=== PATIENT | male | born 1980 | race Caucasian/White ===

== ENCOUNTER 2024-12-18 00:07 | Outpatient (REF) | payer SELFPAY ==
[2024-12-18 00:08] VITALS: BP 193/94; PULSE 103; RESP 19; TEMP 36.7; O2SAT 99; BMI 32.1
--- NOTE | 2024-12-18 00:38 | EKG12_ITS ---
Test Reason : DYSRHYTHMIA Blood Pressure : */* mmHG Vent. Rate : 87 BPM Atrial Rate : 87 BPM P-R Int : 134 ms QRS Dur : 90 ms QT Int : 388 ms P-R-T Axes : 32 9 28 degrees QTcB Int : 466 ms Normal sinus rhythm Normal ECG Confirmed by Danielito Lopez ([id number]), school photograph editor TARAS PATTERSON ([id number]) on 12/18/2024 12:49:46 PM Referred By: Confirmed By: Danielito Lopez
[2024-12-18 00:55] LABS: Absolute Lymphocyte Count 1.35 X10^3/uL (0.83-4.51); Basophil# 0.05 X10^3/uL; Basophil% 0.7 % (0-1); Eosinophil# 0.11 X10^3/uL; Eosinophils% 1.6 % (0-5); Hematocrit 35.6 % (40-54); Lymphocyte # 1.35 X10^3/ul (0.83-4.51); Lymphocyte % 19.2 % (19-41); Mean Corp Hgb Conc 36.5 g/dL (32-36); Mean Corpuscular Hgb 33.5 pg (27.0-32.0); Mean Corpuscular Volume 91.8 fL (80-94); Mean Platelet Vol. 11.5 fl (6.2-12.0); Monocyte# 0.53 X10^3/uL; Monocyte% 7.5 % (0-10); NRBC Flagged by Analyzer 0 % (0-5); Neutrophil # 4.97 X10^3/uL (2.7-7.7); Neutrophil % 70.7 % (47-70); POSITIVE COUNT YES; Platelet Count 98 K/mm3 (150-450); RBC Distribution Width SD 43.3 fl (35.1-43.9); Red Blood Count 3.88 M/mm3 (4.6-6.2)
[2024-12-18 00:58] LABS: Differential Indicated SCAN CRITERIA MET
[2024-12-18 00:59] LABS: Mucous, Urine 0 SEEN /hpf (<or=2+)
[2024-12-18 01:01] LABS: Color, Urine Yellow (Yellow); Glucose, Dipstick Normal (Normal); Ketone-Dipstick Negative (Negative); Leukocyte Esterase-Dipstick 25 /ul (Negative); Nitrite-Dipstick Negative (Negative); Occult Blood-Urine 250 /ul (Negative); Urine Clarity Clear (Clear); Urine Urobilinogen 8 mg/dl (Normal)
[2024-12-18 01:08] VITALS: BP 161/83; PULSE 86; RESP 14; O2SAT 97
[2024-12-18 01:08] LABS: Urine Bilirubin Dipstick 3 mg/dL (Negative)
[2024-12-18 01:14] LABS: White Blood Cells 10-25 SEEN /hpf (0-5)
[2024-12-18 01:15] LABS: Bacteria 1+ /hpf (None Seen); Hyaline Cast 0-5 SEEN /lpf (0-5); Red Blood Cells-Urine 25-50 SEEN /hpf (0-5); Squamous Epithelial Cells - UA 0-5 SEEN /hpf (0-5)
[2024-12-18 01:23] LABS: Alcohol, Blood (Medical)-Serum < 10.1 mg/dL (<=10.0)
[2024-12-18 01:38] LABS: ALB/GLOB Ratio 0.8 RATIO (0.9-2.4); AST(SGOT) 69 U/L (<=37); Alanine Aminotransfer ALT/SGPT 23 U/L (<=46); Albumin, Serum 3.3 g/dL (3.5-5.0); Alkaline Phosphatase 141 U/L (40-129); Anion Gap 14 (5-15); BUN 20 mg/dL (4-19); BUN/Creat Ratio 22.9 RATIO (10-20); Chloride 100 mmol/L (98-108); Creatinine, Serum 0.88 mg/dL (0.70-1.20); EST Glomerular Filtration Rate 110 (>60); Globulin 4.4 g/dL (2.2-4.2); Glucose 118 mg/dL (70-99); Potassium 3.3 mmol/L (3.3-5.1); Protein, Total 7.7 g/dL (5.9-8.4); Sodium Level 136 mmol/L (133-145); Total Bilirubin 3.87 mg/dL (0.00-1.30)
[2024-12-18 01:39] LABS: Amphetamine Urine NEGATIVE (<1000 ng/mL); Barbiturate Urine NEGATIVE (< 200 ng/mL); Benzodiazepine Urine NEGATIVE (< 200 ng/mL); Buprenorphine Urine NEGATIVE (< 200 ng/mL); Cocaine Urine NEGATIVE (< 300 ng/mL); Fentanyl, Urine NEGATIVE; Methadone Urine NEGATIVE (< 300 ng/mL); Opiates Urine NEGATIVE (< 300 ng/mL); Oxycodone, Urine NEGATIVE (< 100 ng/mL); PCP Urine NEGATIVE (< 25 ng/mL); Protein, Urine (Random) > 600.0 mg/dL (0.0-12.0); THC Urine NEGATIVE (< 50 ng/mL)
[2024-12-18 01:50] LABS: Platelet Estimate SLT DEC (ADEQ)
[2024-12-18 02:00] VITALS: BP 164/94; PULSE 89; RESP 17; O2SAT 97
--- NOTE | 2024-12-18 02:25 | EX.ED.DYSGE1 ---
HPI History of Present Illness Chief Complaint: Alt LOC Informant: patient Narrative Narrative: Patient is a 43-year-old male with history of alcohol abuse and chronic swelling of his lower extremities presenting from half-way for concern of altered mental status and elevated blood pressure. Patient currently states he has no complaints is not entirely sure why he is here. He does report a history of regular alcohol use but stopped drinking heavily a couple months ago. He now drinks about 3 times a week. States his last drink was on Saturday. On Saturday he had some vomiting which states is typical for when he stops drinking but denies any other withdrawal symptoms. Denies any history of DTs or seizures. States that he has not seen a doctor since he was a kid. He denies any chest pain, shortness of breath or difficulty breathing. Does tell me that he did see something last night which was a cat that he thought was trying get on his bed. He states he did not mind it because he likes cats. Patient's blood pressure was noted to be elevated (200 systolic) at the half-way and he was sent in for further evaluation. Patient denies any headache or vision changes. No other complaints or concerns reported this time. [facility] Medical History Liver cirrhosis Home Medications ?Medication ?Instructions ?Recorded ?Last Taken ?Type NK 12/18/24 Unknown History Allergy/AdvReac Type Severity Reaction Status Date / Time No Known Allergies Allergy Verified 12/18/24 00:09 Surgical History Hx of appendectomy Social History Smoking Status: Never smoker ROS ROS ED Constitutional Constitutional ED: Denies chills or fever(s) Eyes Eyes: Denies change in vision Cardiovascular Cardiovascular: Denies chest pain or palpitations Respiratory/Chest Respiratory/Chest: Denies cough or dyspnea Gastrointestinal Gastrointestinal: Denies abdominal pain Musculoskeletal Musculoskeletal: Denies arthralgias or myalgias Neurologic Neurologic: Denies headache(s) or weakness Psychiatric Psychiatric: Reports other Details: Concern for delirium, confusion EXAM Physical Exam Const Vital Signs: 12/18/24 00:08 12/18/24 01:08 12/18/24 02:00 Temperature 98.1 F Temperature Source Oral Pulse Rate 103 H 86 89 Respiratory Rate 19 H 14 17 Blood Pressure 193/94 H 161/83 H 164/94 H Blood Pressure Mean 127 109 117 Pulse Ox 99 97 97 Oxygen Delivery Method Room Air Room Air Room Air Positive well developed General Appearance ED: well developed and NAD HEENT Reports dry mucous membranes Negative for trauma Mouth ED: Yes dry mucous membranes Mouth: dry mucous membranes Eyes PERRL and EOMs intact bilaterally Eyes Narrative: Mild scleral icterus present Neck supple Chest Wall inspection of chest normal Resp normal respiratory effort and clear to auscultation bilaterally Cardio regular rate, regular rhythm and no murmurs GI normal to inspection, nondistended, normoactive bowel sounds and non-tender Extremity Extremity Narrative: Chronic appearing edema of the lower extremities, nonpitting. Left worse than right. Patient states this is actually improved from baseline Neuro oriented x3 Neuro Narrative: Very minimally tremulous, no asterixis present. Sensorium / Orientation: alert Motor Exam: Negative for general weakness Psych mental status grossly normal Psych Narrative: Patient calm, acting appropriately. Has good insight. Recalls that his blood pressure was high. Does tell me that he did see a cat in his bed which he realizes was not there but did not mind it. Skin no rashes or lesions noted and no wounds Skin Narrative: Chronic skin changes to the left lower extremity compared to the right MDM MDM MDM Narrative Medical decision making narrative: Patient evaluated for concern of mental status change and hypertension. Patient presenting from half-way. Does have a history of regular alcohol use with his last drink 5 days ago. Patient is currently calm and acting appropriately. Upon arrival he is hypertensive and mildly tachycardic. Differential includes DTs, anxiety reaction, electrolyte derangement, intoxication, hyperammonemia or sequela of cirrhosis. Patient is monitored to the emergency room and his tachycardia resolved without any intervention. His blood pressure is downtrending. He is afebrile. Low suspicion for infectious etiology. CBC largely normal except he does have thrombocytopenia (platelets 98) which is consistent with his cirrhosis/liver disease. CMP shows a mildly elevated glucose of 118 which is nonspecific. He has a normal anion gap and bicarb. Kidney functions normal. AST is elevated compared to ALT his bilirubin is elevated at 3.83. I suspect this is chronic. Ammonia is normal at 54. I do not suspect hepatic encephalopathy at this time. TSH is normal. Urinalysis shows protein, red blood cells and white blood cells 1+ bacteria. I will send for culture but I do not think this is associated with his presentation today. Do not think he requires antibiotics. He is not having any pain so low suspicion for renal colic causing symptoms. Patient does not have any seizure activity. At this time of the low suspicion for acute alcohol withdrawal. Feel that he can be discharged back to half-way. They will continue to observe him in the medical unit overnight. I did recommend that he follow-up outpatient with GI for his liver disease as well as with the primary care doctor. They will see about putting in a referral for a PCP. Blood pressure continues to downtrend to do not want to start any blood pressure medication in the emergency room. Given return precautions emergency room. Discharged home in stable condition. Ambulates easily out of the emergency room. Lab Data Attestation: I reviewed the patient's lab results. Labs: Laboratory Results - last 24 hr 12/18/24 12/18/24 12/18/24 00:16 00:44 01:10 WBC 7.0 RBC 3.88 L Hgb 13.0 Hct 35.6 L MCV 91.8 MCH 33.5 H MCHC 36.5 H RDW Std Deviation 43.3 RDW Coeff of Freddy 13.0 Plt Count 98 L MPV 11.5 Immature Gran % (Auto) 0.300 Neut % (Auto) 70.7 H Lymph % (Auto) 19.2 [place] % (Auto) 7.5 Eos % (Auto) 1.6 Baso % (Auto) 0.7 Absolute Neuts (auto) 5.0 Absolute Lymphs (auto) 1.35 Nucleated RBC % 0 Platelet Estimate SLT DEC Sodium 136 Potassium 3.3 Chloride 100 Carbon Dioxide 22.0 Anion Gap 14 BUN 20 H Creatinine 0.88 Estim Creat Clear Calc 130.60 Est GFR (MDRD) Non-Af 110 BUN/Creatinine Ratio 22.9 H Glucose 118 H Calcium 9.0 Total Bilirubin 3.87 H AST 69 H ALT 23 Alkaline Phosphatase 141 H Ammonia 54.0 Total Protein 7.7 Albumin 3.3 L Globulin 4.4 H Albumin/Globulin Ratio 0.8 L TSH 1.210 Urine Color Yellow Urine Clarity Clear Urine pH 6.0 Ur Specific [place] 1.020 Urine Protein TNP Urine Glucose (UA) Normal Urine Ketones Negative Urine Occult Blood 250 H Urine Nitrite Negative Urine Bilirubin 3 H Urine Urobilinogen 8 H Ur Leukocyte Esterase 25 H Urine RBC 25-50 SEEN Urine WBC 10-25 SEEN Ur Squamous Epith Cells 0-5 SEEN Urine Bacteria 1+ Hyaline Casts 0-5 SEEN Urine Mucus 0 SEEN U Random Total Protein > 600.0 H Urine Opiates Screen NEGATIVE U Buprenorphine Qual NEGATIVE Ur Oxycodone Screen NEGATIVE Urine Methadone Screen NEGATIVE Urine Fentanyl Screen NEGATIVE Ur Barbiturates Screen NEGATIVE Ur Phencyclidine Scrn NEGATIVE Ur Amphetamines Screen NEGATIVE U Benzodiazepines Scrn NEGATIVE Urine Cocaine Screen NEGATIVE U Cannabinoids Screen NEGATIVE Ethyl Alcohol < 10.1 Rhythm Strip Rhythm Strip: Sinus Rhythm Rate: 87 Ectopy: None EKG Initial EKG: Attestation: I personally reviewed and interpreted this EKG as follows: Interpretation: Sinus Rhythm Comments: Normal sinus rhythm rate of 87 bpm Normal axis Normal intervals Normal ST segments No prior EKG available for comparison Discharge Plan Triage Chief Complaint: Alt LOC ED Provider: Neris Deng Dx/Rx/DC Orders Clinical Impression: Altered awareness, transient, History of ETOH abuse, Cirrhosis of liver Instructions: ED ALOC, ED Cirrhosis Prescriptions: No Action NK Primary Care Provider: Care Physician,No Primary Referrals: Jeffery Mayer DO [Med Staff - Active Staff] - Care Physician,No Primary [Primary Care Provider] - Activity Restrictions/Additional Instructions: At this time there is not clear evidence of acute alcohol withdrawal. His heart rate and blood pressure improved without any intervention. He is mentating appropriately in the emergency room and is not delirious. His lab work does show signs concerning for likely cirrhosis of the liver but otherwise largely normal. I do recommend outpatient follow-up with gastroenterology and more importantly follow-up with primary care doctor for the chronic swelling in his legs as well as his blood pressure. I do recommend continued observation tonight at the half-way to ensure that his symptoms do not progress or worsen. Print Language: Romanian
[2024-12-18 02:33] VITALS: BP 136/101; PULSE 87; RESP 18; TEMP 36.7; O2SAT 96
== END 2024-12-18 02:37 ==
LOC: ED 00:07
PROVIDERS: Visit Provider Emergency Medicine
DX: R40.4 Transient alteration of awareness (principal); Z86.59 Personal history of other mental and behavioral disorders; Y92.149 Unspecified place in prison as the place of occurrence of the external cause; K74.60 Unspecified cirrhosis of liver
CPT/HCPCS: 80053; 80307; 81001; 82077; 82140; 84156; 84443; 85025; 93005; A4216

== ENCOUNTER 2024-12-19 16:53 | Inpatient (IN) | payer SELFPAY ==
[2024-12-19] VITALS (10 sets, daily range): BP systolic 118–195; BP diastolic 65–92; PULSE 85–135; RESP 18–26; TEMP 37.2–39.5; O2SAT 93–98; BMI 34.2
--- NOTE | 2024-12-19 17:07 | EKG12_ITS ---
Test Reason : GNERAL Blood Pressure : */* mmHG Vent. Rate : 113 BPM Atrial Rate : 113 BPM P-R Int : 156 ms QRS Dur : 108 ms QT Int : 368 ms P-R-T Axes : 46 15 59 degrees QTcB Int : 504 ms Sinus tachycardia Otherwise normal ECG Confirmed by CICI SHAW, NOHEMI ([id number]), market editor DALIA SLAUGHTER ([id number]) on 12/21/2024 8:37:00 AM Referred By: Devin Vaz Confirmed By: NOHEMI BOLANOS MD
--- NOTE | 2024-12-19 17:10 | EX.ED.DYSGE1 ---
HPI <RAJAN Rogers - Last Filed: 12/19/24 21:00> History of Present Illness Chief Complaint: Fever Narrative Narrative: 43-year-old male with history of alcohol abuse and chronic swelling of his lower extremities presents from detention for fever and altered mental status. Patient has been in detention for a couple days. He was evaluated in our ED yesterday for hypertension, altered mental status, and lower extremity swelling. He states he has had chronic leg swelling for about 6 months but is unsure why. He was discharged back to detention and overnight developed a fever and his left leg became red. He also reports a slight cough and vomited twice yesterday and twice today and has had a few loose stools. No abdominal pain. Patient tells me his last drink was about a week ago. He drinks approximately 3 times a week. He states he vomited twice yesterday and twice today and has had some loose stool without melena or hematochezia. He has evidence of a facial injury and wounds on his feet. He said he hit his head on the wall at detention. No LOC. No blood thinners. PFSH <RAJAN Rogers - Last Filed: 12/19/24 21:00> [facility] Medical History Liver cirrhosis Home Medications ?Medication ?Instructions ?Recorded ?Last Taken ?Type NK 12/18/24 Unknown History Allergy/AdvReac Type Severity Reaction Status Date / Time No Known Allergies Allergy Verified 12/19/24 16:55 Surgical History Hx of appendectomy Social History Smoking Status: Never smoker ROS <RAJAN Rogers - Last Filed: 12/19/24 21:00> ROS ED ROS Narrative Constitutional: Positive for fever. CVS: Negative for chest pain. Respiratory: Positive for cough. GI: Positive for vomiting, diarrhea. Negative for abdominal pain. : Negative for dysuria. Neuro: Negative for headache. EXAM <RAJAN Rogers - Last Filed: 12/19/24 21:00> Physical Exam Narrative Exam Narrative: CONST: Patient sitting in no acute distress. EYES: Normal inspection. PERRL, EOMI. HEAD: Right upper eyelid hematoma. 2 cm linear laceration above the eye. No raccoon eyes or Schmitz sign, no nasal septal hematoma or hemotympanum. NECK: Normal inspection. RESP: No respiratory distress, CTAB. CVS: Tachycardic with regular rhythm, no murmur, no gallop. ABD: Soft and nontender, no guarding or rebound, nondistended. EXTREMITIES: Bilateral lower extremity edema, left greater than right. Left anterior tibia erythema and warmth. Left great toe plantar surface wound. There is also a small abrasion on the right third toe. 2+ DP pulses. No fluctuance, crepitus or lymphangitic streaking. NEURO: Alert to self and age. States he is at [facility] and it is 2025. Follows commands and moving all extremities. PSYCH: Normal affect. Const Vital Signs: 12/19/24 16:54 12/19/24 17:03 12/19/24 17:05 Temperature 102.5 F H 103.1 F H Temperature Source Oral Oral Pulse Rate 135 H 117 H Respiratory Rate 26 H 20 H Respiratory Effort Normal Non-Labored Respiratory Pattern Normal Blood Pressure 195/88 H 175/92 H Blood Pressure Mean 123 119 Pulse Ox 97 94 Oxygen Delivery Method Room Air Room Air Oxygen Flow Rate (L/min) 12/19/24 17:37 12/19/24 18:00 12/19/24 18:12 Temperature 101.9 F H Temperature Source Oral Pulse Rate 107 H 109 H Respiratory Rate 20 H 21 H Respiratory Effort Respiratory Pattern Blood Pressure 152/82 H 152/82 H Blood Pressure Mean 105 105 Pulse Ox 95 95 Oxygen Delivery Method Room Air Room Air Oxygen Flow Rate (L/min) 12/19/24 19:00 12/19/24 20:00 12/19/24 20:46 Temperature 102.2 F H 100.6 F H 100.6 F H Temperature Source Oral Core Pulse Rate 104 H 98 91 Respiratory Rate 19 H 18 19 H Respiratory Effort Respiratory Pattern Blood Pressure 124/65 H 136/80 H 128/76 H Blood Pressure Mean 84 98 93 Pulse Ox 93 95 96 Oxygen Delivery Method Room Air Nasal Cannula Oxygen Flow Rate (L/min) 2 <Dr. Adam Mcgregor, DO - Last Filed: 12/19/24 23:03> Physical Exam Const Vital Signs: 12/19/24 16:54 12/19/24 17:03 12/19/24 17:05 Temperature 102.5 F H 103.1 F H Temperature Source Oral Oral Pulse Rate 135 H 117 H Respiratory Rate 26 H 20 H Respiratory Effort Normal Non-Labored Respiratory Pattern Normal Blood Pressure 195/88 H 175/92 H Blood Pressure Mean 123 119 Pulse Ox 97 94 Oxygen Delivery Method Room Air Room Air Oxygen Flow Rate (L/min) 12/19/24 17:37 12/19/24 18:00 12/19/24 18:12 Temperature 101.9 F H Temperature Source Oral Pulse Rate 107 H 109 H Respiratory Rate 20 H 21 H Respiratory Effort Respiratory Pattern Blood Pressure 152/82 H 152/82 H Blood Pressure Mean 105 105 Pulse Ox 95 95 Oxygen Delivery Method Room Air Room Air Oxygen Flow Rate (L/min) 12/19/24 19:00 12/19/24 20:00 12/19/24 20:46 Temperature 102.2 F H 100.6 F H 100.6 F H Temperature Source Oral Core Pulse Rate 104 H 98 91 Respiratory Rate 19 H 18 19 H Respiratory Effort Respiratory Pattern Blood Pressure 124/65 H 136/80 H 128/76 H Blood Pressure Mean 84 98 93 Pulse Ox 93 95 96 Oxygen Delivery Method Room Air Nasal Cannula Oxygen Flow Rate (L/min) 2 Sepsis Attestation <Dr. Adam Mcgregor DO - Last Filed: 12/19/24 23:03> Sepsis Alert: Yes Sepsis Attestation: Agree w/Sepsis Date exam was performed: 12/19/24 Possible Source of Sepsis: Genitourinary and Skin/soft tissue Sepsis Organ Dysfunction Criteria Present: Creatinine > 2.0 mg/dL and Lactic Acid > 2 mmol/L Fluid Resuscitation Fluid Resuscitation ordered: Fluids not indicated MDM <RAJAN Rogers - Last Filed: 12/19/24 21:00> [facility] MDM Narrative Medical decision making narrative: Broad differential includes but not limited to pneumonia, viral illness, cellulitis, UTI, intra-abdominal process 43-year-old male from detention with history of alcohol abuse presents with fever and altered mental status. BP 195/88, HR 135, 97% RA, RR 26, febrile at 102.5 ?F. He is awake and alert to self and age. He answers most historical questions appropriately and has no focal neurological deficits. He has a right upper eyelid hematoma and a small laceration as well as scrapes/wounds on bilateral feet. He is tachycardic with normal rhythm. Lungs clear. Abdomen soft and nontender. Left leg swollen, red, and warm over the anterior jane and foot concerning for cellulitis. There is no fluctuance or crepitus concerning for necrotizing fasciitis. There is a wound on his plantar toe which may have been where the infection started. Sepsis workup was ordered. There is new leukocytosis with WBC of 13.2 with left shift. Hemoglobin 12.5. Platelets are 71 (previously 98). Sodium 136. Potassium 2.9. He has no kidney injury with BUN of 43, 2.68 (20/0.88 previously). Bilirubin and liver enzymes are slightly elevated as compared to previous but he has no abdominal pain and this is likely secondary to his cirrhosis. Lipase is normal. Lactic is 2.1. CXR negative. Viral swab for COVID/flu/RSV negative. Blood cultures were drawn and he was ordered IV Unasyn and vancomycin since the suspected source of infection is left leg cellulitis. After looking through his visit yesterday his urinalysis looked infected. He denies urinary symptoms but a straight catheterized urine sample today again looks infected with 4+ bacteria. This is a mixed picture for the source of his infection but he is receiving broad antibiotic coverage. I also ordered a CT of the abdomen/pelvis to rule out an infected stone. CT shows cholelithiasis without acute cholecystitis. There is cirrhosis with splenomegaly as well as abdominal varices likely from portal hypertension. No other acute findings. In the ED department he received 2 L IV fluids, Tylenol, ibuprofen, p.o. potassium, and antibiotics. His vital signs are improving. BP 128/76, HR 91, temperature 100.6 ?F. When sleeping he desaturated to the upper 80s was placed on 2 L nasal cannula. Respiratory rate normal at 19. I discussed the case with hospitalist for admission. Of note I ordered a left lower extremity ultrasound due to the redness and asymmetric swelling but they are not available today so this can be done inpatient if needed. Facial injuries were evaluated with a CT scan of the brain and is negative. I cleansed the 2 cm right eyebrow laceration and closed with glue. History & Record Review Discussion w/independent historian: EMS personnel and Patient Additional record(s) reviewed:: Prior ED visit and Prior labs Lab Data Attestation: I reviewed the patient's lab results. Labs: Laboratory Results - last 24 hr 12/19/24 12/19/24 17:30 19:56 WBC 13.2 H RBC 3.68 L Hgb 12.5 L Hct 33.6 L MCV 91.3 MCH 34.0 H MCHC 37.2 H RDW Std Deviation 44.4 H RDW Coeff of Freddy 13.3 Plt Count 71 L MPV 11.6 Immature Gran % (Auto) 1.800 H Neut % (Auto) 90.2 H Lymph % (Auto) 2.0 L Liberty % (Auto) 5.8 Eos % (Auto) 0.0 Baso % (Auto) 0.2 Absolute Neuts (auto) 11.9 H Absolute Lymphs (auto) 0.27 L Nucleated RBC % 0 Differential Comment SCANNED ESR 30 H PT 22.2 H INR 1.9 APTT 37.7 H Sodium 136 Potassium 2.9 L Chloride 99 Carbon Dioxide 21.2 Anion Gap 15 BUN 43 H Creatinine 2.68 H Estim Creat Clear Calc 44.23 L Est GFR (MDRD) Non-Af 30 L BUN/Creatinine Ratio 16.0 Glucose 176 H Lactic Acid 2.1 H* Calcium 8.7 Phosphorus 2.9 Magnesium 1.6 Total Bilirubin 5.07 H Direct Bilirubin 2.96 H AST 170 H ALT 39 Alkaline Phosphatase 109 Total Creatine Kinase 4412 H C-React Prot Ext Range 47.00 H Total Protein 7.3 Albumin 3.1 L Globulin 4.2 Lipase 24 Urine Color Miryam Urine Clarity Cloudy Urine pH 5.0 Ur Specific [place] 1.025 Urine Protein 500 H Urine Glucose (UA) Normal Urine Ketones Negative Urine Occult Blood 250 H Urine Nitrite Negative Urine Bilirubin 3 H Urine Urobilinogen 1 H Ur Leukocyte Esterase 25 H Urine RBC > 100 SEEN Urine WBC 25-50 SEEN Ur Squamous Epith Cells 0-5 SEEN Ur Transition Epith Cell 5-10 SEEN Ur Renal Epithelial Cell 0-5 SEEN Amorphous Sediment 1+ Urine Bacteria 4+ Coarse Granular Casts 0-5 SEEN Urine Mucus 0 SEEN Radiography Diagnostic Testing: Clinical Impression(s) from Imaging Studies Brain CT 12/19/24 17:30 IMPRESSION: Small hematoma about the right orbit but no acute intracranial hemorrhage. Reading Location: [facility] Chest X-Ray 12/19/24 17:55 IMPRESSION: Poor inspiration with some bibasilar atelectasis. Reading Location: [id number] Foot X-Ray 12/19/24 17:55 IMPRESSION: Normal foot. Reading Location: [facility] Tibia/Fibula X-Ray 12/19/24 17:55 IMPRESSION: No acute fracture or dislocation. Diffuse soft tissue swelling. Reading Location: [facility] Abdomen/Pelvis CT 12/19/24 18:58 IMPRESSION: Cholelithiasis without gallbladder wall thickening. Suspected cirrhosis of the liver with evidence of splenomegaly, as well as multiple abdominal varices, particularly within the right abdomen, likely sequela of portal hypertension. Ultrasound of the portal vein may be helpful to exclude thrombosis. Reading [facility] attending interpretation of left tibia/fibula and left foot shows no acute process. No gas. ED attending interpretation 1 view chest x-ray shows normal heart size, no acute infiltrate. <Dr. Adam Mcgregor, DO - Last Filed: 12/19/24 23:03> [facility] Narrative Medical decision making narrative: Broad differential includes but not limited to pneumonia, viral illness, cellulitis, UTI, intra-abdominal process 43-year-old male from detention with history of alcohol abuse presents with fever and altered mental status. BP 195/88, HR 135, 97% RA, RR 26, febrile at 102.5 ?F. He is awake and alert to self and age. He answers most historical questions appropriately and has no focal neurological deficits. He has a right upper eyelid hematoma and a small laceration as well as scrapes/wounds on bilateral feet. He is tachycardic with normal rhythm. Lungs clear. Abdomen soft and nontender. Left leg swollen, red, and warm over the anterior jane and foot concerning for cellulitis. There is no fluctuance or crepitus concerning for necrotizing fasciitis. There is a wound on his plantar toe which may have been where the infection started. Sepsis workup was ordered. There is new leukocytosis with WBC of 13.2 with left shift. Hemoglobin 12.5. Platelets are 71 (previously 98). Sodium 136. Potassium 2.9. He has no kidney injury with BUN of 43, 2.68 (20/0.88 previously). Bilirubin and liver enzymes are slightly elevated as compared to previous but he has no abdominal pain and this is likely secondary to his cirrhosis. Lipase is normal. Lactic is 2.1. CXR negative. Viral swab for COVID/flu/RSV negative. Blood cultures were drawn and he was ordered IV Unasyn and vancomycin since the suspected source of infection is left leg cellulitis. After looking through his visit yesterday his urinalysis looked infected. He denies urinary symptoms but a straight catheterized urine sample today again looks infected with 4+ bacteria. This is a mixed picture for the source of his infection but he is receiving broad antibiotic coverage. I also ordered a CT of the abdomen/pelvis to rule out an infected stone. CT shows cholelithiasis without acute cholecystitis. There is cirrhosis with splenomegaly as well as abdominal varices likely from portal hypertension. No other acute findings. In the ED department he received 2 L IV fluids, Tylenol, ibuprofen, p.o. potassium, and antibiotics. His vital signs are improving. BP 128/76, HR 91, temperature 100.6 ?F. When sleeping he desaturated to the upper 80s was placed on 2 L nasal cannula. Respiratory rate normal at 19. I discussed the case with hospitalist for admission. Of note I ordered a left lower extremity ultrasound due to the redness and asymmetric swelling but they are not available today so this can be done inpatient if needed. Facial injuries were evaluated with a CT scan of the brain and is negative. I cleansed the 2 cm right eyebrow laceration and closed with glue. Attending note: I have personally performed a face to face assessment of the patient and have reviewed the RAMILA note. I personally made/approved the management plan and take responsibility for the patient management. I performed a substantive portion of the visit including all aspects of the following. My santillan findings include:Brought in from detention by police due to fever and tachycardia. Was seen 36 hours for leg swelling workup that was negative sent back. Fever is new. On evaluation had noted signs of head injury swelling and lacerations either he reported he walked into a wall. He states slight cough, no urinary symptoms no vomiting or diarrhea. There is noted left leg swelling with redness that was new. My evaluation patient alert and orient x 3. With fever tachycardia sepsis labs were ordered. White count 13.2 new kidney injury creatinine 2.68 from normal levels less than 36 hours ago. Evaded bilirubin and AST and lipase that it was 24. Urine had signs of infection however he denies any symptoms. Culture sent. He was covered with Unasyn and vancomycin. His chest x-ray is negative. With urine findings with blood and ABENA CT abdomen pelvis ordered rule out obstructive uropathy which was negative there is findings of cirrhosis. Due to his ABENA CPK also added elevated at 4400. Heart rate improved fever is improving. Blood pressure stable. Lactic acid up to 2.1. Meets severe sepsis criteria. He was eval by hospitalist in the ED plans for ICU placement. However CT lower extremities ordered for further evaluation prior to transport to the ICU. CT brain was negative. Laceration was glued extended. Lab Data Labs: Laboratory Results - last 24 hr 12/19/24 12/19/24 17:30 19:56 WBC 13.2 H RBC 3.68 L Hgb 12.5 L Hct 33.6 L MCV 91.3 MCH 34.0 H MCHC 37.2 H RDW Std Deviation 44.4 H RDW Coeff of Freddy 13.3 Plt Count 71 L MPV 11.6 Immature Gran % (Auto) 1.800 H Neut % (Auto) 90.2 H Lymph % (Auto) 2.0 L Liberty % (Auto) 5.8 Eos % (Auto) 0.0 Baso % (Auto) 0.2 Absolute Neuts (auto) 11.9 H Absolute Lymphs (auto) 0.27 L Nucleated RBC % 0 Differential Comment SCANNED ESR 30 H PT 22.2 H INR 1.9 APTT 37.7 H Sodium 136 Potassium 2.9 L Chloride 99 Carbon Dioxide 21.2 Anion Gap 15 BUN 43 H Creatinine 2.68 H Estim Creat Clear Calc 44.23 L Est GFR (MDRD) Non-Af 30 L BUN/Creatinine Ratio 16.0 Glucose 176 H Lactic Acid 2.1 H* Calcium 8.7 Phosphorus 2.9 Magnesium 1.6 Total Bilirubin 5.07 H Direct Bilirubin 2.96 H AST 170 H ALT 39 Alkaline Phosphatase 109 Total Creatine Kinase 4412 H C-React Prot Ext Range 47.00 H Total Protein 7.3 Albumin 3.1 L Globulin 4.2 Lipase 24 Urine Color Miryam Urine Clarity Cloudy Urine pH 5.0 Ur Specific [place] 1.025 Urine Protein 500 H Urine Glucose (UA) Normal Urine Ketones Negative Urine Occult Blood 250 H Urine Nitrite Negative Urine Bilirubin 3 H Urine Urobilinogen 1 H Ur Leukocyte Esterase 25 H Urine RBC > 100 SEEN Urine WBC 25-50 SEEN Ur Squamous Epith Cells 0-5 SEEN Ur Transition Epith Cell 5-10 SEEN Ur Renal Epithelial Cell 0-5 SEEN Amorphous Sediment 1+ Urine Bacteria 4+ Coarse Granular Casts 0-5 SEEN Urine Mucus 0 SEEN Radiography Diagnostic Testing: Clinical Impression(s) from Imaging Studies Brain CT 12/19/24 17:30 IMPRESSION: Small hematoma about the right orbit but no acute intracranial hemorrhage. Reading Location: [facility] Chest X-Ray 12/19/24 17:55 IMPRESSION: Poor inspiration with some bibasilar atelectasis. Reading Location: [facility] Foot X-Ray 12/19/24 17:55 IMPRESSION: Normal foot. Reading Location: [facility] Tibia/Fibula X-Ray 12/19/24 17:55 IMPRESSION: No acute fracture or dislocation. Diffuse soft tissue swelling. Reading Location: [facility] Abdomen/Pelvis CT 12/19/24 18:58 IMPRESSION: Cholelithiasis without gallbladder wall thickening. Suspected cirrhosis of the liver with evidence of splenomegaly, as well as multiple abdominal varices, particularly within the right abdomen, likely sequela of portal hypertension. Ultrasound of the portal vein may be helpful to exclude thrombosis. Reading Location: [facility] <Dr. Adam Mcgregor, DO - Last Filed: 12/19/24 23:03> Critical Care Time Critical Care Time: Yes Critical care time (excluding procedures): 30-74 minutes, Discussing w/Patient &/or Family/Chief Media Officer, Discussing w/Consultants, Arranging Admission or Transfer, Performing Direct Patient Care at Bedside and - (50 minutes) Discharge Plan Triage Chief Complaint: Fever Other Complaint: Cellulitis Wound ED Midlevel Provider: Loni Antunez ED Provider: Adam Mcgregor Dx/Rx/DC Orders Clinical Impression: Encephalopathy, Acute kidney injury, Edema of left lower extremity, Cellulitis of left leg, Acute hypokalemia, Open wound of left great toe without damage to nail, Thrombocytopenia, Hematoma of right eye region, Laceration of face, Acute UTI, Sepsis Primary Care Provider: Care Physician,No Primary Disposition Disposition: Acute Care [facility]
[2024-12-19] MEDS: Ibuprofen 600 MG Tablet PO (17:25)
[2024-12-19] MEDS: 0.9% Normal Saline (1000mL) 1,000 ML 999 ML IV ×2 (17:25→19:19)
--- NOTE | 2024-12-19 17:30 | CT_ITS ---
PROCEDURE: BRAIN/HEAD WITHOUT CONTRAST 12/19/2024 REASON FOR EXAM: HEAD INJURY TECHNIQUE: Head CT without intravenous contrast. Coronal and Sagittal reconstruction series were provided. One or more dose reduction techniques were used (e.g., Automated exposure control, adjustment of the mA and/or kV according to patient size, use of iterative reconstruction technique. FINDINGS: Brain: Normal CSF Spaces: Normal Sinuses/Mastoids: Mucosal thickening of the left maxillary sinus consistent with chronic sinusitis. Bones: Unremarkable. Small hematoma about the right orbit. CT/Brain/Head without Contrast IMPRESSION: Small hematoma about the right orbit but no acute intracranial hemorrhage. Reading Location: [id number]
--- NOTE | 2024-12-19 17:31 | VDLE_ITS ---
Reason For Study Reason For Study: LLE Swelling / Pain Procedure LEFT This is a venous duplex using B-mode, color flow and GSV is normal. spectral Doppler. CFV is compressible, spontaneous, phasic, competent, Exam performed portable in ICU/CCU. and demonstrates normal augmentation. The exam was diagnostic. FV is compressible, spontaneous, phasic, competent A preliminary report was called and/or faxed to ICU and demonstrates normal augmentation. die caster. POP V is compressible, spontaneous, phasic, competent and demonstrates normal augmentation. T/P Trunk is compressible. PTV is compressible. LT PerV is compressible. Enlarged Lymph Node measuring approximately 3.89cm x 1.28cm noted in Lt Groin crease. VL/Venous Duplex US, Unilateral Interpretation Summary Deep veins of the left lower extremity are patent and compressible segmentally. There is no evidence of left lower extremity deep vein thrombosis. The left great saphenous vein appears patent an d compressible segmentally. Enlarged left inguinal lymph node measuring approximately 3.89cm x 1.28cm. Ordering Physician: Loni Antunez Referring Physician: Devin Vaz Performed By: Lobo Thakkar RVT
[2024-12-19] MEDS: Ondansetron 4 MG/2 ML Vial IV (17:36)
[2024-12-19 17:46] LABS: Absolute Lymphocyte Count 0.27 X10^3/uL (0.83-4.51); Absolute Neutrophil Count 11.9 X10^3/uL (2.0-7.7); Basophil# 0.03 X10^3/uL; Basophil% 0.2 % (0-1); Hematocrit 33.6 % (40-54); Hemoglobin 12.5 g/dL (13.0-16.5); Lymphocyte # 0.27 X10^3/ul (0.83-4.51); Mean Corp Hgb Conc 37.2 g/dL (32-36); Mean Corpuscular Volume 91.3 fL (80-94); Mean Platelet Vol. 11.6 fl (6.2-12.0); Monocyte# 0.76 X10^3/uL; Monocyte% 5.8 % (0-10); NRBC Flagged by Analyzer 0 % (0-5); Neutrophil % 90.2 % (47-70); POSITIVE COUNT YES; POSITIVE DIFFERENTIAL YES; POSITIVE MORPHOLOGY YES; Platelet Count 71 K/mm3 (150-450); RBC Distribution Width CV 13.3 % (11.6-14.6); RBC Distribution Width SD 44.4 fl (35.1-43.9); Red Blood Count 3.68 M/mm3 (4.6-6.2); White Blood Count 13.2 K/mm3 (4.4-11.0)
[2024-12-19 17:49] LABS: Differential Indicated SCAN CRITERIA MET
--- NOTE | 2024-12-19 17:55 | RAD_ITS ---
EXAM: Left leg CLINICAL HISTORY: Leg pain and swelling COMPARISON: None TECHNIQUE: Two-view FINDINGS: No acute fracture or dislocation. Diffuse soft tissue swelling. RAD/Tibia & Fibula 2 Views IMPRESSION: No acute fracture or dislocation. Diffuse soft tissue swelling. Reading Location: [id number]
--- NOTE | 2024-12-19 17:55 | RAD_ITS ---
EXAM: Left foot CLINICAL HISTORY: Foot pain and swelling COMPARISON: None TECHNIQUE: Three-view FINDINGS: No acute fracture or dislocation. No arthrosis. Normal soft tissues. RAD/Foot min 3 Views IMPRESSION: Normal foot. Reading Location: [id number]
--- NOTE | 2024-12-19 17:55 | RAD_ITS ---
PROCEDURE: CHEST 1 VIEW (PORTABLE) 12/19/2024 REASON FOR EXAM: FEVER TECHNIQUE: Frontal view of the chest. FINDINGS: Hardware: None Heart: Heart size is mildly enlarged. Lungs: Poor inspiration with some bibasilar atelectasis. Bones: The bones are unremarkable. Other: RAD/Chest 1 View (Portable) IMPRESSION: Poor inspiration with some bibasilar atelectasis. Reading Location: [id number]
[2024-12-19 18:02] LABS: International Normalized Ratio 1.9; Prothrombin Time (Protime)PT. 22.2 SECONDS (11.7-14.9)
[2024-12-19 18:07] LABS: Partial Thromboplast Time 37.7 Seconds (24.1-36.2)
[2024-12-19 18:13] LABS: Differential Comment SCANNED
[2024-12-19 18:38] LABS: AST(SGOT) 170 U/L (<=37); Alanine Aminotransfer ALT/SGPT 39 U/L (<=46); Albumin, Serum 3.1 g/dL (3.5-5.0); Alkaline Phosphatase 109 U/L (40-129); Anion Gap 15 (5-15); BUN 43 mg/dL (4-19); Bilirubin, Direct 2.96 mg/dL (0.00-0.30); Calcium,Total 8.7 mg/dL (7.6-11.0); Carbon Dioxide 21.2 mmol/L (21.0-32.0); Chloride 99 mmol/L (98-108); Creatinine, Serum 2.68 mg/dL (0.70-1.20); EST Glomerular Filtration Rate 30 (>60); Estimated Creatinine Clearance 44.23 ml/min (50-250); Globulin 4.2 g/dL (2.2-4.2); Glucose 176 mg/dL (70-99); Potassium 2.9 mmol/L (3.3-5.1); Protein, Total 7.3 g/dL (5.9-8.4); Sodium Level 136 mmol/L (133-145); Total Bilirubin 5.07 mg/dL (0.00-1.30)
--- NOTE | 2024-12-19 18:58 | CT_ITS ---
PROCEDURE: ABDOMEN/PELVIS WITHOUT CONT 12/19/2024 REASON FOR EXAM: FEVER TECHNIQUE: Abdomen and pelvis CT without intravenous contrast. Noncontrast technique limits evaluation of the abdominal and pelvic viscera. Coronal and Sagittal reconstruction series were provided. One or more dose reduction techniques were used (e.g., Automated exposure control, adjustment of the mA and/or kV according to patient size, use of iterative reconstruction technique). PATIENT PREPARATION: Per protocol ORAL CONTRAST TYPE: None. AMOUNT: mL COMPARISON: None FINDINGS: Lung bases: Mild dependent atelectasis Liver: Subtle nodularity of the liver contour, suspicious for cirrhosis. Gallbladder: Small layering density, concerning for stones. Spleen: Splenomegaly. Pancreas: Normal size. No surrounding inflammation. Adrenals: Unremarkable Kidneys: No urolithiasis. No hydronephrosis. Bladder: Unremarkable Reproductive Organs: Small coarse calcification of the prostate gland. Bowel: Unremarkable Appendix: Status post appendectomy. Lymph nodes: No lymphadenopathy. Vasculature: Multiple abdominal varices are demonstrated, particularly within the right abdomen, likely sequela of portal hypertension. Peritoneum / Retroperitoneum: No free fluid or free air is demonstrated. Bones: Unremarkable CT/Abdomen/Pelvis without Cont IMPRESSION: Cholelithiasis without gallbladder wall thickening. Suspected cirrhosis of the liver with evidence of splenomegaly, as well as mult iple abdominal varices, particularly within the right abdomen, likely sequela of portal hypertension. Ultrasound of the portal vein may be helpful to exclude thrombosis. Reading [facility]
[2024-12-19 19:06] LABS: Lactic Acid 2.1 mmol/L (0.0-2.0)
--- NOTE | 2024-12-19 19:09 | ED.RN ---
Per day shift nurse report, delmer informed nursing staff that they need to be notified when patient is discharged.
[2024-12-19] MEDS: Ampicillin/Sulbactam 3 GM in 0.9% Normal Saline (100mL MB+) 100 ML IV (19:17)
[2024-12-19] MEDS: Acetaminophen 500 MG Tablet 1000 MG PO (19:25)
[2024-12-19] MEDS: Potassium Chloride Oral Tablet 20 MEQ 40 MEQ PO (19:25)
[2024-12-19 20:03] LABS: Mucous, Urine 0 SEEN /hpf (<or=2+)
[2024-12-19 20:08] LABS: Color, Urine Amber (Yellow); Glucose, Dipstick Normal (Normal); Ketone-Dipstick Negative (Negative); Leukocyte Esterase-Dipstick 25 /ul (Negative); Nitrite-Dipstick Negative (Negative); Occult Blood-Urine 250 /ul (Negative); Protein-Dipstick 500 mg/dl (Negative); Specific Gravity, Urine 1.025 (1.002-1.030); Urine Clarity Cloudy (Clear); Urine Urobilinogen 1 mg/dl (Normal)
[2024-12-19 20:13] LABS: Urine Bilirubin Dipstick 3 mg/dL (Negative)
[2024-12-19 20:15] LABS: Coarse Granular Cast 0-5 SEEN /lpf (0-5 /lpf); Squamous Epithelial Cells - UA 0-5 SEEN /hpf (0-5); Transitional Epithelial - Ur 5-10 SEEN /hpf (0-5)
[2024-12-19 20:16] LABS: Bacteria 4+ /hpf (None Seen); Red Blood Cells-Urine > 100 SEEN /hpf (0-5); Renal Epithelial Cells 0-5 SEEN /hpf (0-5); White Blood Cells 25-50 SEEN /hpf (0-5)
[2024-12-19 20:17] LABS: Amorphous Sediment 1+
[2024-12-19 20:17] LABS: Lipase 24 U/L (13-75)
[2024-12-19] MEDS: Vancomycin HCl 2,000 MG in 0.9% Normal Saline (500mL Bag) 500 ML 250 MG IV (20:25)
--- NOTE | 2024-12-19 20:55 | HP.PCM.HOS_ITS ---
HPI - General General Date of Admission: 12/19/24 Date of Service: 12/19/24 Chief Complaint: New onset fevers with worsening left lower extremity swelling HPI Narrative CHECO RIVERO, is a 43 M who presented to [facility] ED on 12/19/2024 with new onset fevers and worsening left lower extremity swelling. Patient was seen in the ED here on 12/18 for hypertension, altered mental status and left lower extremity swelling. He came from senior care and had been there for a few days. Was noted that he has an alcohol abuse history and there was some concern for alcohol withdrawal. However, ED doc noted that his heart rate and blood pressure improved without intervention and his mentation was appropriate in the ED. Labs were consistent with known history of cirrhosis but were otherwise largely normal, and his lower extremity swelling was largely chronic. For these reasons he was discharged back to senior care from the ED. However, overnight there he developed a fever and his left leg showed worsening erythema and swelling. He also developed nausea with 2 episodes of vomiting. For these reasons he was brought back to the ED for further evaluation. On arrival to the ED he was febrile to 103.1 F, tachycardic to the 130s and hypertensive to the 170s systolic. Labs notable for WBC count 13, creatinine 2.68, BUN 43, potassium 2.9, lactate 2.1, CPK 4412, ESR 30, CRP 47, total bili 5.0, AST 170, INR 1.9. These were markedly worse compared to labs from 12/18. Tibia/fibula x-ray showed diffuse soft tissue swelling, no fractures. Given the significant rapid worsening of lab values and lower extremity redness and swelling, CT lower extremity was ordered to evaluate for necrotizing fasciitis. CT showed marked soft tissue swelling with subcutaneous soft tissue stranding and thickening but no subcu gas or abscesses noted. He was given 2 L of IV fluids in the ED with significant improvement in heart rate, and lactate resolved. Given concern for sepsis secondary to LLE cellulitis, hospitalist was contacted for admission. I saw the patient at bedside in the ED. Patient was fatigued appearing and somewhat somnolent appearing. He had a significant right eyelid laceration that apparently happened the day prior due to him falling at the senior care. He was able to open his eyes and make appropriate eye contact for me and was alert and oriented x 3. However, he was falling asleep with other questions so only limited information was obtained. He denied any acute pain or discomfort at that time. No other acute concerns. FORMERLY [facility] Medical History Liver cirrhosis Home Medications ?Medication ?Instructions ?Recorded ?Last Taken ?Type NK 12/18/24 Unknown History Allergy/AdvReac Type Severity Reaction Status Date / Time No Known Allergies Allergy Verified 12/19/24 16:55 Surgical History Hx of appendectomy Social History Smoking Status: Never smoker ROS Constitutional Constitutional: Reports fatigue, fever(s) and malaise; Denies chills Eyes Eyes: Denies change in vision Cardiovascular Cardiovascular: Denies chest pain Respiratory/Chest Respiratory/Chest: Denies shortness of breath at rest Gastrointestinal Gastrointestinal: Denies abdominal pain Neurologic Neurologic: Denies dizziness or headache(s) Vital Signs Vital Signs Vital Signs: 12/19/24 16:54 12/19/24 17:03 12/19/24 17:05 Temperature 102.5 F H 103.1 F H Temperature Source Oral Oral Pulse Rate 135 H 117 H Respiratory Rate 26 H 20 H Respiratory Effort Normal Non-Labored Respiratory Pattern Normal Blood Pressure 195/88 H 175/92 H Blood Pressure Mean 123 119 Pulse Ox 97 94 Oxygen Delivery Method Room Air Room Air Oxygen Flow Rate (L/min) 12/19/24 17:37 12/19/24 18:00 12/19/24 18:12 Temperature 101.9 F H Temperature Source Oral Pulse Rate 107 H 109 H Respiratory Rate 20 H 21 H Respiratory Effort Respiratory Pattern Blood Pressure 152/82 H 152/82 H Blood Pressure Mean 105 105 Pulse Ox 95 95 Oxygen Delivery Method Room Air Room Air Oxygen Flow Rate (L/min) 12/19/24 19:00 12/19/24 20:00 12/19/24 20:46 Temperature 102.2 F H 100.6 F H Temperature Source Oral Pulse Rate 104 H 98 91 Respiratory Rate 19 H 18 19 H Respiratory Effort Respiratory Pattern Blood Pressure 124/65 H 136/80 H 128/76 H Blood Pressure Mean 84 98 93 Pulse Ox 93 95 96 Oxygen Delivery Method Room Air Nasal Cannula Oxygen Flow Rate (L/min) 2 Weight Weight: 108.227 kg Body Mass Index (BMI) 34.2 Physical Exam Const alert, oriented x3 and no apparent distress Constitutional Narrative: Middle-age male, class I obesity, fatigued and somewhat somnolent appearing but alert and oriented x 3, only answering some questions with short appropriate responses, otherwise sitting up comfortably in bed and in no acute distress. General Appearance: cooperative and comfortable Orientation / Consciousness: lethargic HEENT normocephalic, head/scalp atraumatic, hearing grossly normal bilaterally and nasal mucous membranes and turbinates normal HEENT Narrative: Dry mucous membranes. Right eyelid laceration with right periorbital swelling noted, stable. Eyes PERRL, EOMs intact bilaterally and conjunctivae normal Neck full ROM Chest inspection of chest normal Resp normal respiratory effort and no use of accessory muscles Resp Narrative: Breathing comfortably on 2 L nasal cannula at rest. Mild bibasilar crackles noted, otherwise good air movement throughout with no wheezing noted. Cardio regular rate, regular rhythm, no murmurs and peripheral pulses 2+ throughout GI normal to inspection, nondistended, normoactive bowel sounds, soft to palpation, non-tender and non-distended Back/Spine normal ROM Extremity Extremity Narrative: Significant left lower extremity erythema and swelling noted up to the knee with warmth and mild tenderness on palpation. Neuro moves all extremities and no focal motor deficits Results Lab / Micro Data 12/19/24 17:30 12/19/24 17:30 Labs: Laboratory Results - last 24 hr 12/19/24 17:30: WBC 13.2 H, RBC 3.68 L, Hgb 12.5 L, Hct 33.6 L, MCV 91.3, MCH 34.0 H, MCHC 37.2 H, RDW Std Deviation 44.4 H, RDW Coeff of Freddy 13.3, Plt Count 71 L, MPV 11.6, Immature Gran % (Auto) 1.800 H, Neut % (Auto) 90.2 H, Lymph % (Auto) 2.0 L, Parke % (Auto) 5.8, Eos % (Auto) 0.0, Baso % (Auto) 0.2, Absolute Neuts (auto) 11.9 H, Absolute Lymphs (auto) 0.27 L, Nucleated RBC % 0, Differential Comment SCANNED, PT 22.2 H, INR 1.9, APTT 37.7 H, Sodium 136, P otassium 2.9 L, Chloride 99, Carbon Dioxide 21.2, Anion Gap 15, BUN 43 H, C reatinine 2.68 H, Estim Creat Clear Calc 44.23 L, Est GFR (MDRD) Non-Af 30 L, BUN/Creatinine Ratio 16.0, Glucose 176 H, Lactic Acid 2.1 H*, Calcium 8.7, Total Bilirubin 5.07 H, Direct Bilirubin 2.96 H, AST 170 H, ALT 39, Alkaline Phosphatase 109, Total Protein 7.3, Albumin 3.1 L, Globulin 4.2, Lipase 24 12/19/24 19:56: Urine Color Miryam, Urine Clarity Cloudy, Urine pH 5.0, Ur Specific [place] 1.025, Urine Protein 500 H, Urine Glucose (UA) Normal, Urine Ketones Negative, Urine Occult Blood 250 H, Urine Nitrite Negative, Urine Bilirubin 3 H, Urine Urobilinogen 1 H, Ur Leukocyte Esterase 25 H, Urine RBC > 100 SEEN, Urine WBC 25-50 SEEN, Ur Squamous Epith Cells 0-5 SEEN, Ur Transition Epith Cell 5-10 SEEN, Ur Renal Epithelial Cell 0-5 SEEN, Amorphous Sediment 1+, Urine Bacteria 4+, Coarse Granular Casts 0-5 SEEN, Urine Mucus 0 SEEN Micro: Microbiology 12/19/24 17:35 Mucosa - Nose SARS-CoV-2, Influenza & RSV (PCR) - Final Imaging Radiology Impression Brain CT 12/19/24 17:30 IMPRESSION: Small hematoma about the right orbit but no acute intracranial hemorrhage. Reading Location: [facility] Chest X-Ray 12/19/24 17:55 IMPRESSION: Poor inspiration with some bibasilar atelectasis. Reading Location: [facility] Foot X-Ray 12/19/24 17:55 IMPRESSION: Normal foot. Reading Location: [facility] Tibia/Fibula X-Ray 12/19/24 17:55 IMPRESSION: No acute fracture or dislocation. Diffuse soft tissue swelling. Reading Location: [id number] Abdomen/Pelvis CT 12/19/24 18:58 IMPRESSION: Cholelithiasis without gallbladder wall thickening. Suspected cirrhosis of the liver with evidence of splenomegaly, as well as multiple abdominal varices, particularly within the right abdomen, likely sequela of portal hypertension. Ultrasound of the portal vein may be helpful to exclude thrombosis. Reading [facility] Assessment & Plan Assessment/Plan (1) Sepsis: (2) Cellulitis of left leg: (3) Cirrhosis of liver: (4) Encephalopathy: PLAN: Plan Patient is a 44-year-old male who presented to [facility] ED on 12/19/24 with fevers and worsening left lower extremity swelling. 1. Sepsis without shock suspected secondary to left lower extremity cellulitis ? Admit under inpatient status to ICU. Cylinder Checker consulted. Wound management consulted. Met sepsis criteria on admit with elevated lactate, ABENA, acute encephalopathy, elevated bilirubin and low platelets. LLE cellulitis is most likely source but mild UTI may also be contributing. Noted to have open left great toe wound in the ED that was cleaned and dressed. Given 2 L of IV fluids in the ED with improvement in tachycardia and lactate resolved, BP remained stable. Continuing maintenance IV fluids for rhabdomyolysis as notable low. Will treat with IV vancomycin and Zosyn for now. Follow-up blood cultures and urine culture. Monitor left lower extremity closely. Cannot rule out LLE DVT, venous duplex ultrasound ordered. 2. Acute metabolic encephalopathy ? Patient was A&O x 3 in the ED but quite somnolent and frequently not answering questions due to somnolence. Suspect primarily due to infection as above. Ammonia level normal at 54 on 12/18, lower likelihood of hepatic encephalopathy. Avoid sedating medications as able. 3. ABENA with rhabdomyolysis ? Creatinine 2.68 on admit, baseline suspected to be around 0.8. Notably creatinine was 0.8 on day prior to this admission. CPK 4412 on admit. Unclear etiology for rhabdomyolysis at this time. Reportedly had fall at the senior care but no extended downtime. Urine drug screen on 12/18 was negative. No seizure activity noted at the senior care. Had concern for possible necrotizing fasciitis from the left lower extremity on admit but CT ruled this out. Continue IV maintenance fluids. Follow-up a.m. BMP and monitor urine output. Follow-up a.m. CPK level. 4. Elevated LFTs with elevated INR and setting of presumed cirrhosis, cholelithiasis ? T. bili 5.07, direct bili 2.96, AST 170, ALT 39, alk phos 109 on admit. These labs were slightly worsened from prior labs on 12/18, baseline unknown. INR 1.9. CT abdomen pelvis showed suspected liver cirrhosis with evidence of splenomegaly as well as multiple abdominal varices; also showed cholelithiasis without gallbladder wall thickening. Right upper quadrant ultrasound with Doppler ordered to rule out portal vein thrombosis. Given dose of IV vitamin K 5 mg in the ED. Follow-up a.m. LFTs and INR level. Low threshold to consult GI as needed. 5. Hypokalemia ? Potassium 2.9 on admit. Mag and Phos normal. Replete as needed. 6. Right eyebrow laceration with periorbital swelling ? Secondary to a fall in senior care where he hit his face on the wall. CT brain with small hematoma around the right orbit but no acute intracranial hemorrhage. 2 cm right eyebrow laceration was cleansed and closed with glue in the ED. 7. History of alcohol abuse ? Reported history of heavy alcohol use. Last drink was now 6 days ago. Very low concern for acute withdrawal at this time. Will treat with folate and thiamine. 8. Incarceration ? Case management consulted. Patient is currently in senior care for unclear reason. Has apparently only been in senior care for the past few days. Will likely plan to return to senior care on discharge. 9. Thrombocytopenia ? Platelet count 71 on admit. Platelet count was 98 on 12/18. Suspect primarily due to cirrhosis but sepsis may also be contributing. Okay for heparin subcu for DVT prophylaxis. Monitor daily CBC. 10. Concern for UTI ? UA on admit with 25 leukocyte esterase, negative nitrates, 4+ bacteria. Patient unable to state if he is having dysuria. Giving heavy IV fluids and treating with antibiotics as noted above. Follow-up urine culture. 11. Class I obesity ? BMI 30 on admit. Encouraged weight loss. DVT prophylaxis: Heparin subcu CODE STATUS: Full code, unverified Expected disposition: TBD Total clinical time spent by myself addressing the patient's medical issues, reviewing all the data, and collaborating with patient's care team: 75 minutes. Charges/Coding Visit Charges Inpatient E&M: 39922 Init Hosp L3
[2024-12-19 21:06] LABS: CPK Total, Creatine Kinase 4412 U/L (24-195)
--- NOTE | 2024-12-19 21:22 | CT_ITS ---
PROCEDURE: EXTREMITY LOWER WITHOUT CONTRA 12/19/2024 REASON FOR EXAM: DIFFUSE SWELLING W/ HIGH CPK, EVAL FOR NEC FASC TECHNIQUE: Axial CT images of the left lower leg obtained with intravenous contrast. Coronal and Sagittal reconstruction series were provided. CONTRAST: Not provided VOLUME: Not provided mL Not Provided Gauge IV One or more dose reduction techniques were used (e.g., Automated exposure control, adjustment of the mA and/or kV according to patient size, use of iterative reconstruction technique). RADIATION DOSE SUMMARY: CTDlvol: 15 mGy DLP: 1113 mGycm COMPARISON: None FINDINGS: Bones: No evidence of fracture. Joints: Joint space(s) preserved. No subluxation or dislocation. Soft Tissues: Marked soft tissue swelling with subcutaneous soft tissue thickening and stranding. No abnormal collection is demonstrated. CT/Extremity Lower without Contra IMPRESSION: Marked soft tissue swelling with subcutaneous soft tissue stranding and thicken ing. No abnormal collection is demonstrated. This may represent edema. Underlying infection can not be excluded. No acute fractures. Reading Location: [facility]
[2024-12-19 21:28] LABS: Magnesium 1.6 mg/dL (1.5-2.2); Phosphorus 2.9 mg/dL (2.7-4.5)
[2024-12-19 21:51] LABS: Erythrocyte Sedimentation Rate 30 mm/hr (0-20)
[2024-12-19] MEDS: Piperacil/Tazobactam 4.5 GM in 0.9% Normal Saline (100mL MB+) 100 ML IV (21:59)
[2024-12-19] MEDS: Lactated Ringers 1,000 ML 150 ML IV (22:01)
[2024-12-19] MEDS: Phytonadione (Vit K) 5 MG in 0.9% Normal Saline (50mL Bag) 50 ML 150 MG IV (22:01)
[2024-12-19 22:03] LABS: Reflex Lactate? Y
[2024-12-19] MEDS: Clindamycin 600 MG/50 ML BAG 100 MG IV (22:49)
[2024-12-19 22:57] LABS: Lactic Acid 1.3 mmol/L (0.0-2.0)
[2024-12-20] VITALS (19 sets, daily range): BP systolic 99–133; BP diastolic 64–79; PULSE 72–88; RESP 9–18; TEMP 36.6–37.7; O2SAT 92–100; BMI 30.1
[2024-12-20] MEDS: Magnesium Sulfate 2 GM in Dextrose 5%-Water (100mL Bag) 100 ML IV (00:56)
[2024-12-20] MEDS: Heparin Injection (Vial) 5,000 UNIT/ML VIAL 5000 UNIT SC ×2 (00:59→11:03)
--- NOTE | 2024-12-20 01:56 | PCM.RX.CS ---
Consult Antibiotic Management Pharmacy has been consulted to manage selected antibiotic: Vancomycin Type of Intervention Type of Consult: New start Labs Labs: Sodium 136 mmol/L (133-145) 12/19/24 17:30 Potassium 2.9 mmol/L (3.3-5.1) L 12/19/24 17:30 Chloride 99 mmol/L (98-108) 12/19/24 17:30 Carbon Dioxide 21.2 mmol/L (21.0-32.0) 12/19/24 17:30 Anion Gap 15 (5-15) 12/19/24 17:30 BUN 43 mg/dL (4-19) H 12/19/24 17:30 Creatinine 2.68 mg/dL (0.70-1.20) H 12/19/24 17:30 Est GFR (MDRD) Non-Af 30 (>60) L 12/19/24 17:30 BUN/Creatinine Ratio 16.0 RATIO (10-20) 12/19/24 17:30 Glucose 176 mg/dL (70-99) H 12/19/24 17:30 Microbiology Microbiology: Microbiology 12/19/24 17:35 Mucosa - Nose SARS-CoV-2, Influenza & RSV (PCR) - Final Dosing Weight Weight used for dosin.2 kg Estimated Creatinine Clearance Estimated Creatinine Clearance: 44.23 Goal Trough Goal Trough: 15-20 mcg/mL Pharmacy Plan for Drug Dosing Pharmacy Plan for Drug Dosing: Pharmacy Service will continue to monitor and adjust dosing as required. 2000MG GIVEN IN ER 12/19 @ 2024. START 750MG Q12H AND DRAW TROUGH PRIOR TO 4TH DOSE Follow-Up Labs Follow-Up Labs: Trough: Vancomycin Date/Time Labs Ordered Labs to be done on [date and time ordered]: 12/21 @ 7874
[2024-12-20 03:59] LABS: Hematocrit 29.1 % (40-54); Hemoglobin 10.5 g/dL (13.0-16.5); Mean Corp Hgb Conc 36.1 g/dL (32-36); Mean Corpuscular Hgb 33.5 pg (27.0-32.0); Mean Platelet Vol. 11.5 fl (6.2-12.0); POSITIVE COUNT YES; Platelet Count 63 K/mm3 (150-450); RBC Distribution Width CV 13.7 % (11.6-14.6); RBC Distribution Width SD 46.5 fl (35.1-43.9); Red Blood Count 3.13 M/mm3 (4.6-6.2); White Blood Count 8.8 K/mm3 (4.4-11.0)
[2024-12-20 04:01] LABS: Scan Indicated on CBC? Y/N NO
[2024-12-20 04:09] LABS: International Normalized Ratio 2.5; Prothrombin Time (Protime)PT. 27.9 SECONDS (11.7-14.9)
[2024-12-20 04:15] LABS: ALB/GLOB Ratio 0.7 RATIO (0.9-2.4); AST(SGOT) 124 U/L (<=37); Alanine Aminotransfer ALT/SGPT 29 U/L (<=46); Albumin, Serum 2.3 g/dL (3.5-5.0); Alkaline Phosphatase 73 U/L (40-129); Anion Gap 12 (5-15); BUN 46 mg/dL (4-19); BUN/Creat Ratio 21.8 RATIO (10-20); Calcium,Total 7.5 mg/dL (7.6-11.0); Carbon Dioxide 21.9 mmol/L (21.0-32.0); Chloride 104 mmol/L (98-108); Creatinine, Serum 2.11 mg/dL (0.70-1.20); EST Glomerular Filtration Rate 39 (>60); Estimated Creatinine Clearance 52.28 ml/min (50-250); Globulin 3.3 g/dL (2.2-4.2); Glucose 166 mg/dL (70-99); Potassium 2.9 mmol/L (3.3-5.1); Protein, Total 5.6 g/dL (5.9-8.4); Sodium Level 138 mmol/L (133-145); Total Bilirubin 3.59 mg/dL (0.00-1.30)
[2024-12-20] MEDS: Lactated Ringers 1,000 ML 150 ML IV (04:17)
[2024-12-20] MEDS: Piperacil/Tazobactam 3.375 GM in 0.9% Normal Saline (50mL MB+) 50 ML IV ×3 (05:49→21:20)
[2024-12-20] MEDS: Potassium Chloride Oral Tablet 20 MEQ 60 MEQ PO (05:49)
[2024-12-20] MEDS: 0.9% Saline Lock 10 ML Syringe IV ×2 (05:52→21:21)
--- NOTE | 2024-12-20 07:15 | PN.HOSP_ITS ---
Reason for Visit Reason for Visit: Diagnoses Sepsis, unspecified organism (12/19/24) Encephalopathy, unspecified (12/19/24) Unspecified cirrhosis of liver (12/19/24) Cellulitis of left lower limb (12/19/24) Objective Data Objective Data Vital Signs: Vital Signs Temp Pulse Resp BP Pulse Ox O2 Del Method O2 Flow Rate 97.9 F 72 15 108/64 97 Nasal Cannula 2 12/20/24 04:00 12/20/24 07:00 12/20/24 07:00 12/20/24 07:00 12/20/24 07:00 12/20/24 07:00 12/20/24 07:00 Oxygen Flow Rate (L/min) 2 Oxygen Delivery Method Nasal Cannula Weight: 209 lb 14.081 oz Body Mass Index (BMI) 30.0 Intake & Output: Intake and Output for Last 24 Hours 12/18/24 12/19/24 12/20/24 23:59 23:59 23:59 Intake Total 2852.5 / 2852.5 1044 / 1044 Output Total 550 / 550 Balance 2852.5 / 2852.5 494 / 494 Lab / Micro Data 12/20/24 03:45 12/20/24 03:45 Labs: Laboratory Results - last 24 hr 12/19/24 17:30: WBC 13.2 H, RBC 3.68 L, Hgb 12.5 L, Hct 33.6 L, MCV 91.3, MCH 34.0 H, MCHC 37.2 H, RDW Std Deviation 44.4 H, RDW Coeff of Freddy 13.3, Plt Count 71 L, MPV 11.6, Immature Gran % (Auto) 1.800 H, Neut % (Auto) 90.2 H, Lymph % (Auto) 2.0 L, [place] % (Auto) 5.8, Eos % (Auto) 0.0, Baso % (Auto) 0.2, Absolute Neuts (auto) 11.9 H, Absolute Lymphs (auto) 0.27 L, Nucleated RBC % 0, Differential Comment SCANNED, ESR 30 H, PT 22.2 H, INR 1.9, APTT 37.7 H, Sodium 136, Potassium 2.9 L, Chloride 99, Carbon Dioxide 21.2, Anion Gap 15, BUN 43 H, Creatinine 2.68 H, Estim Creat Clear Calc 44.23 L, Est GFR (MDRD) Non-Af 30 L, BUN/Creatinine Ratio 16.0, Glucose 176 H, Lactic Acid 2.1 H*, Calcium 8.7, Phosphorus 2.9, Magnesium 1.6, Total Bilirubin 5.07 H, Direct Bilirubin 2.96 H, AST 170 H, ALT 39, Alkaline Phosphatase 109, Total Creatine Kinase 4412 H, C- React Prot Ext Range 47.00 H, Total Protein 7.3, Albumin 3.1 L, Globulin 4.2, Lipase 24 12/19/24 19:56: Urine Color [place], Urine Clarity Cloudy, Urine pH 5.0, Ur Specific [place] 1.025, Urine Protein 500 H, Urine Glucose (UA) Normal, Urine Ketones Negative, Urine Occult Blood 250 H, Urine Nitrite Negative, Urine Bilirubin 3 H, Urine Urobilinogen 1 H, Ur Leukocyte Esterase 25 H, Urine RBC > 100 SEEN, Urine WBC 25-50 SEEN, Ur Squamous Epith Cells 0-5 SEEN, Ur Transition Epith Cell 5-10 SEEN, Ur Renal Epithelial Cell 0-5 SEEN, Amorphous Sediment 1+, Urine Bacteria 4+, Coarse Granular Casts 0-5 SEEN, Urine Mucus 0 SEEN 12/19/24 22:20: Lactic Acid 1.3 12/20/24 03:45: WBC 8.8, RBC 3.13 L, Hgb 10.5 L, Hct 29.1 L, MCV 93.0, MCH 33.5 H, MCHC 36.1 H, RDW Std Deviation 46.5 H, RDW Coeff of Freddy 13.7, Plt Count 63 L, MPV 11.5, PT 27.9 H, INR 2.5, Sodium 138, Potassium 2.9 L, Chloride 104, Carbon Dioxide 21.9, Anion Gap 12, BUN 46 H, Creatinine 2.11 H, Estim Creat Clear Calc 52.28, Est GFR (MDRD) Non-Af 39 L, BUN/Creatinine Ratio 21.8 H, Glucose 166 H, C alcium 7.5 L, Total Bilirubin 3.59 H, AST 124 H, ALT 29, Alkaline Phosphatase 73, Total Protein 5.6 L, Albumin 2.3 L, Globulin 3.3, Albumin/Globulin Ratio 0.7 L Micro: Microbiology 12/19/24 17:35 Mucosa - Nose SARS-CoV-2, Influenza & RSV (PCR) - Final Radiography Diagnostic Testing: Radiology Impression Brain CT 12/19/24 17:30 IMPRESSION: Small hematoma about the right orbit but no acute intracranial hemorrhage. Reading Location: [id number] Chest X-Ray 12/19/24 17:55 IMPRESSION: Poor inspiration with some bibasilar atelectasis. Reading Location: [id number] Foot X-Ray 12/19/24 17:55 IMPRESSION: Normal foot. Reading Location: [id number] Tibia/Fibula X-Ray 12/19/24 17:55 IMPRESSION: No acute fracture or dislocation. Diffuse soft tissue swelling. Reading Location: [id number] Abdomen/Pelvis CT 12/19/24 18:58 IMPRESSION: Cholelithiasis without gallbladder wall thickening. Suspected cirrhosis of the liver with evidence of splenomegaly, as well as multiple abdominal varices, particularly within the right abdomen, likely sequela of portal hypertension. Ultrasound of the portal vein may be helpful to exclude thrombosis. [facility] Extrem[facility] 12/19/24 21:22 IMPRESSION: Marked soft tissue swelling with subcutaneous soft tissue stranding and thickening. No abnormal collection is demonstrated. This may represent edema. Underlying infection can not be excluded. No acute fractures. Reading [facility] Physical Exam Narrative Seen and examined Patient has bilateral leg swelling for more than 6-month but left leg got more swollen around ankle and feet, patient does not know the exact timeline. There is also ulcer on the left great toe, plantar side. Bedside superficial slough was removed to culture the wound. Patient has been drinking alcohol since age of 19 previously was drinking 30 beers every day but has now cut to 6-8 every other day. Physical exam General: Alert, Oriented x3, Cooperative HEENT: Glued lacerated wound on the right eyebrow. Right upper lid edematous/bruised purplish color. Icterus present, PERRLA, EOMI, Normocephalic Oral: No Gingival or Mucosal Lesions/ Ulcerations Neck: Supple, No JVD, Negative Carotid Bruits Chest wall/Lungs: Air entry diminished in bilateral lung bases. No crepitation/rhonchi Cardiovascular: Regular rate, Regular Rhythm, Normal S1, Normal S2, No M/G/R Abdomen: Shifting dullness present. Ascites. Bowel Sounds soft, Soft, Non Tender, Non-Distended. Liver about 1 central enlarged. Spleen palpable : No dysuria. No renal angle tenderness. No suprapubic tenderness. Extremities: 2+ edema, Capillary Refill Less than 3 Seconds Skin: Ulcer on the left great toe. Bruises on the right knuckles after he punched the wall mainly on left 4th and 5th MCP head . Also redness on the left knuckle and hand. Musculoskeletal: No Tenderness to Palpation of Joints or Extremities Neurological: Cranial nerves II-XII grossly intact, DTR 2+/4. No acute focal neurological deficit. Psych/Mental Status: Normal Affect, Appropriate. Assessment & Plan Assessment/Plan (1) Sepsis: (2) Cellulitis of left leg: (3) Cirrhosis of liver: (4) Encephalopathy: PLAN: Plan Patient is a 44-year-old male who presented to [facility] ED on 12/19/24 from intermediate with fevers, altered mental status and worsening left lower extremity swelling and erythema. The patient has history of chronic alcohol use, chronic swelling of his lower extremities for 6 months. He also has wounds on his feet, hit his head on the wall in the intermediate but no LOC. Not undetectable 1. Sepsis without shock suspected secondary to left lower extremity cellulitis: Patient has tiny ulcer over the left great toe , plantar aspect which was superficially debrided for culture. Continue broad-spectrum antibiotic. The patient presented with sepsis with clinical indicators of fever, tachycardia, tachypnea and due to skin and soft tissue infection/lower extremity cellulitis with acute sepsis-related organ dysfunction as evidenced by elevated lactate, ABENA, acute encephalopathy and elevated bilirubin. CT scan of lower extremity shows marked soft tissue swelling with subcutaneous tissue thickening and stranding but no abnormal collection. Venous duplex of left lower extremities ordered. On IV vancomycin and Zosyn. 2. Acute metabolic encephalopathy: Patient is awake alert and x 3 today. Acute encephalopathy resolved. Patient also feels apologetic that he has been drinking high. ? Patient was A&O x 3 in the ED but quite somnolent and frequently not answering questions due to somnolence. Suspect primarily due to infection as above. Ammonia level normal at 54 on 12/18, lower likelihood of hepatic encephalopathy. Avoid sedating medications as able. 3. ABENA with rhabdomyolysis with fracture of head of the right fifth metacarpal: ? Creatinine 2.68 on admit, baseline suspected to be around 0.8. CPK 4412 on admit. Patient also has swelling of right and left hand more on the right MC joint area prominent in 3rd-5th MC joint and fingers. Patient also has swelling of left lower extremity more than right prominent on the left ankle and feet. Hand and feet x-ray were done which reported normal. Ankle x-ray shows soft tissue swelling but no acute fracture. X-ray of right hand shows fracture head of the right metacarpal 4. Elevated LFTs with elevated INR and setting of presumed cirrhosis, cholelithiasis ? T. bili 5.07, direct bili 2.96, AST 170, ALT 39, alk phos 109 on admit. These labs were slightly worsened from prior labs on 12/18, baseline unknown. INR 1.9. CT abdomen pelvis showed suspected liver cirrhosis with evidence of splenomegaly as well as multiple abdominal varices; also showed cholelithiasis without gallbladder wall thickening. Right upper quadrant ultrasound with Doppler ordered to rule out portal vein thrombosis. Given dose of IV vitamin K 5 mg in the ED. Follow-up a.m. LFTs and INR level. Low threshold to consult GI as needed. 5. Hypokalemia ? Potassium 2.9 on admit. Recheck Potassium. Magnesium low normal and is being replaced mag and Phos normal. Replete as needed. 6. Right eyebrow laceration with periorbital swelling ? Secondary to a fall in intermediate where he hit his face on the wall. CT brain with small hematoma around the right orbit but no acute intracranial hemorrhage. 2 cm right eyebrow laceration was cleansed and closed with glue in the ED. 7. Chronic alcohol use with acute alcoholic hepatitis: Patient's previous 3.8 12/18, 5.07 yesterday and today 3.5 mg/dL, mainly direct hyperbilirubinemia. 8. Incarceration ? Case management consulted. Patient is currently in intermediate. 9. Thrombocytopenia ? Platelet count 71 on admit. Platelet count was 98 on 12/18. Platelet count 63,000. 10. Abnormal UA ? UA on admit with 25 leukocyte esterase, negative nitrates, 4+ bacteria. Patient denies burning with urination 11. Class I obesity ? BMI 30 on admit. Encouraged weight loss. DVT prophylaxis: Discontinue heparin CODE STATUS: Full code, unverified Expected disposition: TBD Total clinical time spent by myself addressing the patient's medical issues, reviewing all the data, and collaborating with patient's care team: 75 minutes. Charges/Coding Visit Charges Inpatient E&M: 28342 Subs Hosp L2
--- NOTE | 2024-12-20 08:12 | RAD_ITS ---
PROCEDURE: WRIST MIN 3 VIEWS 12/20/2024 REASON FOR EXAM: CONCERN FOR FRACTURE TECHNIQUE: 3 views of the left wrist COMPARISON: None. FINDINGS: Bones: No visible fracture. No suspicious bone lesion. Joints: Normal alignment. Joint spaces preserved. No arthropathic features. Soft tissues: Soft tissues are unremarkable. Other: IV tubing overlying the left wrist. RAD/Wrist min 3 Views IMPRESSION: NEGATIVE WRIST SERIES Reading Location: [id number]
--- NOTE | 2024-12-20 08:14 | RAD_ITS ---
PROCEDURE: HAND MIN 3 VIEWS 12/20/2024 REASON FOR EXAM: CONCERN FOR FRACTURE TECHNIQUE: 2 view(s) of the right hand COMPARISON: Same day right wrist radiographs. FINDINGS: Bones: Acute fracture of the head of the 5th metacarpal. No suspicious bone lesion. Joints: No obvious intra-articular extension of the fracture. Normal alignment. Joint spaces preserved. No arthropathic features. Soft tissues: Soft tissue swelling. Other: No radiodense foreign body. RAD/Hand Min 3 Views IMPRESSION: Acute fracture of the head of the 5th right metacarpal. Reading Location: [id number]
--- NOTE | 2024-12-20 08:15 | RAD_ITS ---
PROCEDURE: WRIST MIN 3 VIEWS 12/20/2024 REASON FOR EXAM: CONCERN FOR FRACTURE TECHNIQUE: 3 views of the right wrist COMPARISON: None. FINDINGS: Bones: No wrist fracture. See same day hand radiographs for discussion of right 5th metatarsal fracture. No suspicious bone lesion. Joints: Normal alignment. Soft tissues: Soft tissues are unremarkable. RAD/Wrist min 3 Views IMPRESSION: No wrist fracture. See same day hand radiographs for discussion of right 5th me tatarsal fracture. Reading Location: [id number]
--- NOTE | 2024-12-20 08:20 | RAD_ITS ---
PROCEDURE: ANKLE MIN 3 VIEWS 12/20/2024 REASON FOR EXAM: LEFT ANKLE SWELLING TECHNIQUE: 3 views of the left ankle COMPARISON: Left tibia/fibula radiographs and left ankle radiographs, left lower extremity CT 12/19/2024. FINDINGS: Bones: No acute fracture. No suspicious bone lesion. Joints: Normal alignment. Mild degenerative changes. Soft tissues: Soft tissue swelling. Other: No radiographic foreign body. RAD/Ankle min 3 Views IMPRESSION: Soft tissue swelling. No acute fracture. Reading Location: [id number]
[2024-12-20 08:21] LABS: CPK Total, Creatine Kinase 2676 U/L (24-195)
--- NOTE | 2024-12-20 08:45 | RAD_ITS ---
PROCEDURE: HAND MIN 3 VIEWS 12/20/2024 REASON FOR EXAM: CONCERN FOR FRACTURE TECHNIQUE: 3 view(s) of the left hand COMPARISON: Same day wrist radiographs. FINDINGS: Bones: No acute fracture. No suspicious bone lesion. Joints: Normal alignment. Joint spaces preserved. No arthropathic features. Soft tissues: Soft tissues are unremarkable. Other: IV tubing overlying the left wrist. RAD/Hand Min 3 Views IMPRESSION: NEGATIVE HAND SERIES Reading Location: [id number]
[2024-12-20] MEDS: Lidocaine 1% (20 ml mdv) 20 ML Vial 3 ML SC (09:30)
--- NOTE | 2024-12-20 09:38 | CON.PCM_ITS ---
Assessment & Plan Assessment/Plan (1) Non-pressure chronic ulcer of other part of left foot with necrosis of muscle: PLAN: Patient was examined and evaluated. All findings were discussed with the patient. All questions were answered to the patient satisfaction. Radiograph ankle (12/20/2024): Three-view nonweightbearing left ankle films show no evidence of radiolucency or concern for fracture. There is evidence of increase in soft tissue swelling with no soft tissue defect. No emphysema or soft tissue air is appreciated. Radiograph foot (12/19/2024): Three-view nonweightbearing left foot films. Mild sock is within normal limits for the patient's race and age. Metatarsophalangeal joints are within normal limits. Medial bleak fusion is evidence of coalition or decreased joint space. Lateral view shows increase in soft tissue volume without notable defect. No emphysema or soft tissue air. Ankle and subtalar joint within normal limits. Radiographs tib-fib (12/19/2024): 2 view tib-fib radiographs nonweightbearing show no evidence of acute fracture or dislocation. There is evidence of diffuse soft tissue swelling with no notable defect. No soft tissue air or emphysema is appreciated. No radiolucencies noted. Excisional debridement down to including subcutaneous tissue, fascia and muscle with a number 3 mm dermal curette to the full-thickness wound plantar aspect left hallux done without incident. Predebridement measurement was 1.2 x 0.8 x 0.1 cm. Postdebridement measurement is 1.5 x 1.0 x 0.3 cm. Educate the patient on the need to remove the toenail for concern of abscess underneath the nail which she was understanding of. Verbal consent was obtained. The left hallux was prepped and draped in normal aseptic manner. 3 cc of 1% lidocaine plain was administered without incident. Once anesthesia was confirmed again, the left hallux was prepped and draped in normal aseptic manner. Using a Talco elevator the proximal and inferior nail was freed from all and soft tissue attachments. Using a curved stat the nail in total was removed and discarded. There is evidence of scant purulent drainage, as well as sanguinous drainage. The area was flushed with copious normal saline. Compression with gauze was used to control bleeding. The area was dressed with bacitracin, the full-thickness wound was also dressed with bacitracin followed by sterile Band-Aid, dry sterile dressing and Elastoplast. Verbal dressing changes were obtained from nursing staff. CT scan, left lower extremity (12/19/2024): Show evidence of marked soft tissue swelling with subcutaneous soft tissue stranding and thickening. No abnormal collection appreciated. Underlying infection cannot be excluded at this time. No evidence of fractures appreciated No plan for additional surgery during this hospital visit. There is no concern for cellulitis left lower extremity at this time however there is concern for deep vein thrombosis. Venous duplex studies have been ordered and awaiting results. Culture, left hallux: Pending Venous duplex: Results pending WBC: 8.8 ESR: 30 GLU: 166 Medicine: On board, medical management, IV vancomycin and Zosyn Social work: Pending No need for additional surgery at this time. The patient was educated that his full-thickness wound to the plantar aspect of left hallux is most likely due to alcoholic neuropathy. Educated the patient to stop drinking which he is understanding of and to get into a program while he is incarcerated so that when he is released from skilled nursing he can continue a life of sobriety or continued use of alcohol will most likely be a problem for the patient moving forward. He was understanding this. Podiatry will continue to follow while patient is in house. Please reach out to Dr. Lipscomb with any questions or concerns. (2) Other specified peripheral vascular diseases: (3) Ingrowing nail with infection: (4) Cutaneous abscess of foot: QUALIFIERS: Laterality: left Qualified Code(s): L02.612 - Cutaneous abscess of left foot (5) Alcohol abuse: (6) Alcoholic peripheral neuropathy: HPI Consult Data Date of Consult: 12/20/24 HPI Narrative Reason for Consultation: Left leg swelling, full-thickness wound left hallux, ingrowing toenail left HPI Narrative: CHECO RIVERO, is a 44 M wiith a past medical history of alcohol abuse and chronic swelling to his bilateral lower extremity left greater than right presents from [facility] for fever and altered mental status. Patient has been in skilled nursing for the past few days and was sent to the emergency room at [facility] for further evaluation. Patient shows evidence of a ecchymotic right eyelid as well as swelling in the bilateral upper lower extremities secondary to trauma as well open as bilateral lower extremity swelling left greater than right. Patient admits to chronic leg swelling bilaterally for about 6 months and is unsure why. Patient also states that he notices some yellowish coloring to his skin and eyes and was told that he has some liver problems. Patient states that he was drinking approximately 15 beers a day for many years. He does admit to vomiting twice yesterday as well as admitting to loose stool. He denies any trauma to the left lower extremity area. He does admit to hitting his hands against the wall due to agitation. He is unsure about the eye. Denies trauma. Denies constitutional symptoms. No other pedal complaints at this time. Podiatry was consulted for full-thickness wound as well as ingrowing toenail with infection to the left great toe. [facility] Medical History Liver cirrhosis Home Medications ?Medication ?Instructions ?Recorded ?Last Taken ?Type NK 12/18/24 Unknown History Allergy/AdvReac Type Severity Reaction Status Date / Time No Known Allergies Allergy Verified 12/19/24 16:55 Surgical History Hx of appendectomy Social History Smoking Status: Never smoker Physical Exam Narrative Vascular: DP and PT pulses palpable. CFT brisk. Blanchable erythema to the left lower extremity.. Skin temperature is warm to warm with no focal increase. Evidence of nonpitting edema appreciated right lower extremity. Evidence of nonpitting edema versus +1 pitting edema to the left lower extremity. Neurologic: Light touch is intact. Patient does respond to painful stimuli. Dermatologic: Evidence of full-thickness wound to the plantar aspect of the left hallux at the level of the IPJ. Full-thickness wound measures 1.5 x 1.0 x 0.3 cm. Wound base is granular. No drainage or sign of infection. Evidence of ingrowing toenail to the medial and lateral border of the left hallux with concern for infection. Blanchable erythema is appreciated to the left hallux. Evidence of drainage is also noted. Malodor is appreciated. Excisional debridement down to including subcutaneous tissue, fascia and muscle with a number 3 mm dermal curette to the full-thickness wound plantar aspect left hallux done without incident. Predebridement measurement was 1.2 x 0.8 x 0.1 cm. Postdebridement measurement is 1.5 x 1.0 x 0.3 cm. Musculoskeletal: No pain on palpation to the right and left lower extremities. No pain to palpation of the full-thickness wound or ingrowing toenail to the left hallux. No pain with calf compression bilateral. Lab / Micro Data 12/20/24 03:45 12/20/24 13:50 Labs: Laboratory Results - last 24 hr 12/19/24 17:30: WBC 13.2 H, RBC 3.68 L, Hgb 12.5 L, Hct 33.6 L, MCV 91.3, MCH 34.0 H, MCHC 37.2 H, RDW Std Deviation 44.4 H, RDW Coeff of Freddy 13.3, Plt Count 71 L, MPV 11.6, Immature Gran % (Auto) 1.800 H, Neut % (Auto) 90.2 H, Lymph % (Auto) 2.0 L, Dodge % (Auto) 5.8, Eos % (Auto) 0.0, Baso % (Auto) 0.2, Absolute Neuts (auto) 11.9 H, Absolute Lymphs (auto) 0.27 L, Nucleated RBC % 0, Differential Comment SCANNED, ESR 30 H, PT 22.2 H, INR 1.9, APTT 37.7 H, Sodium 136, Potassium 2.9 L, Chloride 99, Carbon Dioxide 21.2, Anion Gap 15, BUN 43 H, Creatinine 2.68 H, Estim Creat Clear Calc 44.23 L, Est GFR (MDRD) Non-Af 30 L, BUN/Creatinine Ratio 16.0, Glucose 176 H, Lactic Acid 2.1 H*, Calcium 8.7, Phosphorus 2.9, Magnesium 1.6, Total Bilirubin 5.07 H, Direct Bilirubin 2.96 H, AST 170 H, ALT 39, Alkaline Phosphatase 109, Total Creatine Kinase 4412 H, C- React Prot Ext Range 47.00 H, Total Protein 7.3, Albumin 3.1 L, Globulin 4.2, Lipase 24 12/19/24 19:56: Urine Color Miryam, Urine Clarity Cloudy, Urine pH 5.0, Ur Specific Speculator 1.025, Urine Protein 500 H, Urine Glucose (UA) Normal, Urine Ketones Negative, Urine Occult Blood 250 H, Urine Nitrite Negative, Urine Bilirubin 3 H, Urine Urobilinogen 1 H, Ur Leukocyte Esterase 25 H, Urine RBC > 100 SEEN, Urine WBC 25-50 SEEN, Ur Squamous Epith Cells 0-5 SEEN, Ur Transition Epith Cell 5-10 SEEN, Ur Renal Epithelial Cell 0-5 SEEN, Amorphous Sediment 1+, Urine Bacteria 4+, Coarse Granular Casts 0-5 SEEN, Urine Mucus 0 SEEN 12/19/24 22:20: Lactic Acid 1.3 12/20/24 03:45: WBC 8.8, RBC 3.13 L, Hgb 10.5 L, Hct 29.1 L, MCV 93.0, MCH 33.5 H, MCHC 36.1 H, RDW Std Deviation 46.5 H, RDW Coeff of Freddy 13.7, Plt Count 63 L, MPV 11.5, PT 27.9 H, INR 2.5, Sodium 138, Potassium 2.9 L, Chloride 104, Carbon Dioxide 21.9, Anion Gap 12, BUN 46 H, Creatinine 2.11 H, Estim Creat Clear Calc 52.28, Est GFR (MDRD) Non-Af 39 L, BUN/Creatinine Ratio 21.8 H, Glucose 166 H, C alcium 7.5 L, Total Bilirubin 3.59 H, AST 124 H, ALT 29, Alkaline Phosphatase 73, Total Creatine Kinase 2676 H, Total Protein 5.6 L, Albumin 2.3 L, Globulin 3.3, Albumin/Globulin Ratio 0.7 L Micro: Microbiology 12/19/24 17:35 Mucosa - Nose SARS-CoV-2, Influenza & RSV (PCR) - Final Imaging Radiology Impression Brain CT 12/19/24 17:30 IMPRESSION: Small hematoma about the right orbit but no acute intracranial hemorrhage. Reading Location: [facility] Chest X-Ray 12/19/24 17:55 IMPRESSION: Poor inspiration with some bibasilar atelectasis. Reading Location: [facility] Foot X-Ray 12/19/24 17:55 IMPRESSION: Normal foot. Reading Location: [facility] Tibia/Fibula X-Ray 12/19/24 17:55 IMPRESSION: No acute fracture or dislocation. Diffuse soft tissue swelling. Reading Location: [facility] Abdomen/Pelvis CT 12/19/24 18:58 IMPRESSION: Cholelithiasis without gallbladder wall thickening. Suspected cirrhosis of the liver with evidence of splenomegaly, as well as multiple abdominal varices, particularly within the right abdomen, likely sequela of portal hypertension. Ultrasound of the portal vein may be helpful to exclude thrombosis. Reading Location: [facility] Lower Extremity CT 12/19/24 21:22 IMPRESSION: Marked soft tissue swelling with subcutaneous soft tissue stranding and thickening. No abnormal collection is demonstrated. This may represent edema. Underlying infection can not be excluded. No acute fractures. Reading Location: [facility] Wrist X-Ray 12/20/24 08:12 IMPRESSION: NEGATIVE WRIST SERIES Reading Location: [facility] Hand X-Ray 12/20/24 08:14 IMPRESSION: Acute fracture of the head of the 5th right metacarpal. Reading Location: [facility] Wrist X-Ray 12/20/24 08:15 IMPRESSION: No wrist fracture. See same day hand radiographs for discussion of right 5th metatarsal fracture. Reading Location: [facility] Ankle X-Ray 12/20/24 08:20 IMPRESSION: Soft tissue swelling. No acute fracture. Reading Location: [facility] Hand X-Ray 12/20/24 08:45 IMPRESSION: NEGATIVE HAND SERIES Reading Location: [facility]
[2024-12-20] MEDS: Vancomycin HCl 750 MG in 0.9% Normal Saline (250mL Bag) 250 ML 250 MG IV ×2 (11:01→20:52)
[2024-12-20] MEDS: Potassium Chloride Oral Tablet 20 MEQ 40 MEQ PO (13:40)
[2024-12-20] MEDS: Magnesium Chloride 64 MG Delay Rel.Tablet 128 MG PO ×2 (13:40→21:00)
[2024-12-20 14:27] LABS: Magnesium 2.2 mg/dL (1.5-2.2); Phosphorus 3.3 mg/dL (2.7-4.5); Potassium 3.5 mmol/L (3.3-5.1)
[2024-12-20] MEDS: Acetaminophen 325 MG Tablet 650 MG PO (21:00)
[2024-12-21] VITALS (7 sets, daily range): BP systolic 128–136; BP diastolic 69–83; PULSE 74–82; RESP 16–18; TEMP 2.7–37.2; O2SAT 93–99; BMI 31.0
--- NOTE | 2024-12-21 | RAD_ITS ---
PROCEDURE: HAND MIN 3 VIEWS 12/21/2024 REASON FOR EXAM: S/P REDUCTION TECHNIQUE: 3 view(s) of the right hand COMPARISON: Right hand radiographs 12/2024. FINDINGS: Bones: Status post reported reduction of the right 5th metacarpal head fracture. No significant change in alignment of the fracture fragments. Joints: No obvious intra-articular extension of the fracture. The joint spaces are otherwise maintained. Soft tissues: Mild soft tissue swelling. RAD/Hand Min 3 Views IMPRESSION: Status post reported reduction of the right 5th metacarpal head fracture withou t significant change in alignment. Reading Location: [id number]
[2024-12-21] MEDS: Piperacil/Tazobactam 3.375 GM in 0.9% Normal Saline (50mL MB+) 50 ML IV (05:33)
--- NOTE | 2024-12-21 06:00 | US_ITS ---
PROCEDURE: ABDOMEN LIMITED 12/21/2024 REASON FOR EXAM: R/O PORTAL VEIN THROMBOSIS COMPARISON: Prior CT scan dated December 19, 2024. FINDINGS: Liver: Diffusely echogenic suggesting fatty infiltration. Hepatomegaly. Liver measures 21.5 cm. Gallbladder: No evidence of gallstones. Small amount of sludge and gravel is seen along the dependent portion the gallbladder lumen. The gallbladder wall is thickened measuring 5 mm. Positive sonographic Lal's sign. Common bile duct: Normal measuring it measures 4 mm. . Pancreas: Visualized portions are sonographically unremarkable. Other: Kidneys unremarkable. Spleen: The spleen measures 20.2 cm x 8.2 cm 7.9 cm. Splenomegaly. US/Abdomen Limited IMPRESSION: Hepatomegaly and diffuse fatty infiltration of the liver. No evidence of portal venous thrombus. Thickened gallbladder wall with a positive sonographic Lal's sign. Sludge a nd gravel seen along the dependent portion of gallbladder lumen. Splenomegaly. Reading Location: [place] [id number]
--- NOTE | 2024-12-21 08:04 | PCM.PN.HOSP ---
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) Encephalopathy, unspecified (12/19/24) Other specified peripheral vascular diseases (12/19/24) Unspecified cirrhosis of liver (12/19/24) Cutaneous abscess of left foot (12/19/24) Cellulitis of left lower limb (12/19/24) Ingrowing nail (12/19/24) Non-pressure chronic ulcer of other part of left foot with necrosis of muscle (12/19/24) Objective Data Objective Data Vital Signs: Vital Signs Temp Pulse Resp BP Pulse Ox O2 Del Method O2 Flow Rate 98.5 F 79 18 136/77 H 96 Room Air 2 12/21/24 03:00 12/21/24 03:00 12/21/24 03:00 12/21/24 03:00 12/21/24 03:00 12/21/24 03:00 12/20/24 07:24 Oxygen Flow Rate (L/min) 2 Oxygen Delivery Method Room Air Weight: 216 lb 4.375 oz Body Mass Index (BMI) 31.0 Intake & Output: Intake and Output for Last 24 Hours 12/19/24 12/20/24 12/21/24 23:59 23:59 23:59 Intake Total 2852.5 / 2852.5 2674 / 2914 290 / 290 Output Total 550 / 800 525 / 525 Balance 2852.5 / 2852.5 2124 / 2114 -235 / -235 Lab / Micro Data 12/21/24 08:25 12/21/24 08:25 Labs: Laboratory Results - last 24 hr 12/20/24 03:45: Total Creatine Kinase 2676 H 12/20/24 13:50: Potassium 3.5, Phosphorus 3.3, Magnesium 2.2 Micro: Microbiology 12/19/24 17:35 Mucosa - Nose SARS-CoV-2, Influenza & RSV (PCR) - Final Radiography Diagnostic Testing: Radiology Impression Wrist X-Ray 12/20/24 08:12 IMPRESSION: NEGATIVE WRIST SERIES Reading Location: [id number] Hand X-Ray 12/20/24 08:14 IMPRESSION: Acute fracture of the head of the 5th right metacarpal. Reading Location: [facility] Wrist X-Ray 12/20/24 08:15 IMPRESSION: No wrist fracture. See same day hand radiographs for discussion of right 5th metatarsal fracture. Reading Location: [facility] Ankle X-Ray 12/20/24 08:20 IMPRESSION: Soft tissue swelling. No acute fracture. Reading Location: [facility] Hand X-Ray 12/20/24 08:45 IMPRESSION: NEGATIVE HAND SERIES Reading Location: [facility] Physical Exam Narrative Seen and examined Swelling of the right and left hands are better. Patient has bilateral leg swelling for more than 6-month but left leg got more swollen around ankle and feet, patient does not know the exact timeline. There is also ulcer on the left great toe, plantar side. Patient has been drinking alcohol since age of 19 previously was drinking 30 beers every day but has now cut to 6-8 every other day. Physical exam General: Alert, Oriented x3, Cooperative HEENT: Glued lacerated wound on the right eyebrow. Right upper lid edematous/bruised purplish colo, improved r. Icterus present, PERRLA, EOMI, Normocephalic Oral: No Gingival or Mucosal Lesions/ Ulcerations Neck: Supple, No JVD, Negative Carotid Bruits Chest wall/Lungs: Air entry diminished in bilateral lung bases. No crepitation/rhonchi Cardiovascular: Regular rate, Regular Rhythm, Normal S1, Normal S2, No M/G/R Abdomen: Shifting dullness present. Ascites. Bowel Sounds soft, Soft, Non Tender, Non-Distended. Liver about 1 enlarged. Spleen palpable : No dysuria. No renal angle tenderness. No suprapubic tenderness. Extremities: 2+ edema, Capillary Refill Less than 3 Seconds Skin: Ulcer on the left great toe. Bruises on the right knuckles after he punched the wall mainly on left 4th and 5th MCP head . Also redness on the left knuckle and hand. Musculoskeletal: No Tenderness to Palpation of Joints or Extremities Neurological: Cranial nerves II-XII grossly intact, DTR 2+/4. No acute focal neurological deficit. Psych/Mental Status: Normal Affect, Appropriate. Const alert, oriented x3 and no apparent distress Constitutional Narrative: Middle-age male, class I obesity, fatigued and somewhat somnolent appearing but alert and oriented x 3, only answering some questions with short appropriate responses, otherwise sitting up comfortably in bed and in no acute distress. General Appearance: cooperative and comfortable Orientation / Consciousness: lethargic HEENT normocephalic, head/scalp atraumatic, hearing grossly normal bilaterally and nasal mucous membranes and turbinates normal Eyes PERRL, EOMs intact bilaterally and conjunctivae normal Neck full ROM Chest inspection of chest normal Resp normal respiratory effort and no use of accessory muscles Resp Narrative: Breathing comfortably on 2 L nasal cannula at rest. Mild bibasilar crackles noted, otherwise good air movement throughout with no wheezing noted. Cardio regular rate, regular rhythm, no murmurs and peripheral pulses 2+ throughout GI normal to inspection, nondistended, normoactive bowel sounds, soft to palpation, non-tender and non-distended Back/Spine normal ROM Extremity Extremity Narrative: Significant left lower extremity erythema and swelling noted up to the knee with warmth and mild tenderness on palpation. Neuro moves all extremities and no focal motor deficits Assessment & Plan Assessment/Plan (1) Sepsis: (2) Cellulitis of left leg: (3) Cirrhosis of liver: (4) Encephalopathy: PLAN: Plan Patient is a 44-year-old male who presented to [facility] ED on 12/19/24 from senior care with fevers, altered mental status and worsening left lower extremity swelling and erythema. The patient has history of chronic alcohol use, chronic swelling of his lower extremities for 6 months. He also has wounds on his feet, hit his head on the wall in the senior care but no LOC. Not undetectable 1. Sepsis without shock suspected secondary to left lower extremity cellulitis: Patient has tiny ulcer over the left great toe , plantar aspect which was superficially debrided for culture. Continue broad-spectrum antibiotic. The patient presented with sepsis with clinical indicators of fever, tachycardia, tachypnea and due to skin and soft tissue infection/lower extremity cellulitis with acute sepsis-related organ dysfunction as evidenced by elevated lactate, ABENA, acute encephalopathy and elevated bilirubin. CT scan of lower extremity shows marked soft tissue swelling with subcutaneous tissue thickening and stranding but no abnormal collection. Venous duplex of left lower extremities ordered. On IV vancomycin and Zosyn. 12/21: Wound culture growing 3+ Staph aureus. Urine culture no growth. IV antibiotic narrowed down from Zosyn to ceftriaxone. Continue vancomycin 2. Acute metabolic encephalopathy: Patient is awake alert and x 3 today. Acute encephalopathy resolved. Patient also feels apologetic that he has been drinking high. ? Patient was A&O x 3 in the ED but quite somnolent and frequently not answering questions due to somnolence. Suspect primarily due to infection as above. 12/21: Patient on lactulose and Xifaxan 3. ABENA with rhabdomyolysis with fracture of head of the right fifth metacarpal: ? Creatinine 2.68 on admit, baseline suspected to be around 0.8. CPK 4412 on admit. Patient also has swelling of right and left hand more on the right MC joint area prominent in 3rd-5th MC joint and fingers. Patient also has swelling of left lower extremity more than right prominent on the left ankle and feet. Hand and feet x-ray were done which reported normal. Ankle x-ray shows soft tissue swelling but no acute fracture. X-ray of right hand shows fracture head of the right metacarpal 12/21: CK6 163. Serum magnesium and phosphorus normal range. Mild hypokalemia, K3.3 4. Decompensated alcoholic cirrhosis, cholelithiasis ? T. bili 5.07, direct bili 2.96, AST 170, ALT 39, alk phos 109 on admit. These labs were slightly worsened from prior labs on 12/18, baseline unknown. INR 1.9. CT abdomen pelvis showed suspected liver cirrhosis with evidence of splenomegaly as well as multiple abdominal varices; also showed cholelithiasis without gallbladder wall thickening. Right upper quadrant ultrasound with Doppler ordered to rule out portal vein thrombosis. Given dose of IV vitamin K 5 mg in the ED. Follow-up a.m. LFTs and INR level. Low threshold to consult GI as needed. 12/21: TB 3.36, DB 2.2 showing improvement. Right upper quadrant ultrasonogram shows hepatomegaly with diffuse fatty infiltration with no evidence of portal venous thrombosis. Thickened GB with sludge and gravel along dependent portion of GB lumen. Splenomegaly. Reported sonographic Lal sign but patient does not have clinical RUQ tenderness or Lal sign 5. Hypokalemia ? Potassium 2.9 on admit. Recheck Potassium. Magnesium low normal and is being replaced mag and Phos normal. Replete as needed. 12/21: Mild hypokalemia, potassium replaced 6. Right eyebrow laceration with periorbital swelling ? Secondary to a fall in senior care where he hit his face on the wall. CT brain with small hematoma around the right orbit but no acute intracranial hemorrhage. 2 cm right eyebrow laceration was cleansed and closed with glue in the ED. Fracture of right metacarpal head: X-ray showed acute fracture of head of right fifth metacarpal. Plastic surgeon Dr. Niño was consulted. He did closed reduction and applied a splint. Repeat x-ray shows reduction of right fifth metacarpal head fracture without significant change in alignment. 7. Chronic alcohol use with acute alcoholic hepatitis: Patient's previous 3.8 12/18, 5.07 yesterday and today 3.5 mg/dL, mainly direct hyperbilirubinemia. 8. Incarceration ? Case management consulted. Patient is currently in senior care. 9. Thrombocytopenia ? Platelet count 71 on admit. Platelet count was 98 on 12/18. Platelet count 63,000. 10. Abnormal UA ? UA on admit with 25 leukocyte esterase, negative nitrates, 4+ bacteria. Patient denies burning with urination 11. Class I obesity ? BMI 30 on admit. Encouraged weight loss. DVT prophylaxis: Discontinue heparin CODE STATUS: Full code, unverified Expected disposition: TBD Microbiology Past 72 Hours 12/20/24 08:30 Wound - Other Wound Culture - Preliminary Staphylococcus aureus 12/19/24 19:56 Urine, Clean Catch Urine Culture - Preliminary Culture exhibits no growth. 12/19/24 17:35 Mucosa - Nose SARS-CoV-2, Influenza & RSV (PCR) - Final Laboratory Results 12/20/24 13:50: Potassium 3.5, Phosphorus 3.3, Magnesium 2.2 12/21/24 08:25: WBC 8.8, RBC 3.38 L, Hgb 11.2 L, Hct 31.0 L, MCV 91.7, MCH 33.1 H, MCHC 36.1 H, RDW Std Deviation 46.6 H, RDW Coeff of Freddy 13.7, Plt Count 72 L, MPV 12.0, Immature Gran % (Auto) 0.600, Neut % (Auto) 74.2 H, Lymph % (Auto) 10.0 L, [place] % (Auto) 13.8 H, Eos % (Auto) 0.9, Baso % (Auto) 0.5, Absolute Neuts (auto) 6.5, Absolute Lymphs (auto) 0.88, Nucleated RBC % 0, Differential Comment SCANNED, Sodium 134, Potassium 3.3, Chloride 104, Carbon Dioxide 20.9 L, Anion Gap 10, BUN 46 H, Creatinine 1.49 H, Estim Creat Clear Calc 75.08, Est GFR (MDRD) Non-Af 59 L, BUN/Creatinine Ratio 30.7 H, Glucose 117 H, Calcium 8.1, Total Bilirubin 3.36 H, Direct Bilirubin 2.20 H, AST 111 H, ALT 34, Alkaline Phosphatase 83, Total Creatine Kinase 663 H, Total Protein 6.0, Albumin 2.3 L, Globulin 3.6, Albumin/Globulin Ratio 0.6 L, Vancomycin Trough 13.5 Charges/Coding Visit Charges Inpatient E&M: 45746 Subs Hosp L2
[2024-12-21 08:37] LABS: Absolute Lymphocyte Count 0.88 X10^3/uL (0.83-4.51); Absolute Neutrophil Count 6.5 X10^3/uL (2.0-7.7); Basophil# 0.04 X10^3/uL; Basophil% 0.5 % (0-1); Eosinophil# 0.08 X10^3/uL; Eosinophils% 0.9 % (0-5); Hemoglobin 11.2 g/dL (13.0-16.5); Lymphocyte # 0.88 X10^3/ul (0.83-4.51); Mean Corp Hgb Conc 36.1 g/dL (32-36); Mean Corpuscular Hgb 33.1 pg (27.0-32.0); Mean Corpuscular Volume 91.7 fL (80-94); Monocyte# 1.21 X10^3/uL; Monocyte% 13.8 % (0-10); NRBC Flagged by Analyzer 0 % (0-5); Neutrophil # 6.52 X10^3/uL (2.7-7.7); Neutrophil % 74.2 % (47-70); POSITIVE COUNT YES; POSITIVE MORPHOLOGY YES; Platelet Count 72 K/mm3 (150-450); RBC Distribution Width CV 13.7 % (11.6-14.6); RBC Distribution Width SD 46.6 fl (35.1-43.9); Red Blood Count 3.38 M/mm3 (4.6-6.2); White Blood Count 8.8 K/mm3 (4.4-11.0)
[2024-12-21 08:38] LABS: Differential Indicated SCAN CRITERIA MET
[2024-12-21 08:55] LABS: Differential Comment SCANNED
[2024-12-21 09:27] LABS: ALB/GLOB Ratio 0.6 RATIO (0.9-2.4); AST(SGOT) 111 U/L (<=37); Alanine Aminotransfer ALT/SGPT 34 U/L (<=46); Albumin, Serum 2.3 g/dL (3.5-5.0); Alkaline Phosphatase 83 U/L (40-129); Anion Gap 10 (5-15); BUN 46 mg/dL (4-19); BUN/Creat Ratio 30.7 RATIO (10-20); Calcium,Total 8.1 mg/dL (7.6-11.0); Carbon Dioxide 20.9 mmol/L (21.0-32.0); Chloride 104 mmol/L (98-108); Creatinine, Serum 1.49 mg/dL (0.70-1.20); EST Glomerular Filtration Rate 59 (>60); Estimated Creatinine Clearance 75.08 ml/min (50-250); Globulin 3.6 g/dL (2.2-4.2); Glucose 117 mg/dL (70-99); Potassium 3.3 mmol/L (3.3-5.1); Sodium Level 134 mmol/L (133-145); Total Bilirubin 3.36 mg/dL (0.00-1.30)
[2024-12-21 09:52] LABS: Vancomycin, Trough Level 13.5 ug/mL (5.0-15.0)
[2024-12-21 10:01] LABS: CPK Total, Creatine Kinase 663 U/L (24-195)
[2024-12-21] MEDS: Potassium Chloride Oral Tablet 20 MEQ 40 MEQ PO ×2 (10:06→14:32)
[2024-12-21] MEDS: Acetaminophen 325 MG Tablet 650 MG PO (10:06)
[2024-12-21] MEDS: Magnesium Chloride 64 MG Delay Rel.Tablet 128 MG PO ×2 (10:06→21:08)
--- NOTE | 2024-12-21 10:07 | PCM.RX.CS ---
Consult Antibiotic Management Pharmacy has been consulted to manage selected antibiotic: Vancomycin Type of Intervention Type of Consult: Follow-up Suspected Infection Suspected Infection: Sepsis Prior Doses of Antibiotics Prior Doses of Antibiotics Received/Current Regimen: 2000mg loading dose x 1 12.19.24 followed by 750mg iv q12h. Labs Labs: Sodium 134 mmol/L (133-145) 12/21/24 08:25 Potassium 3.3 mmol/L (3.3-5.1) 12/21/24 08:25 Chloride 104 mmol/L (98-108) 12/21/24 08:25 Carbon Dioxide 20.9 mmol/L (21.0-32.0) L 12/21/24 08:25 Anion Gap 10 (5-15) 12/21/24 08:25 BUN 46 mg/dL (4-19) H 12/21/24 08:25 Creatinine 1.49 mg/dL (0.70-1.20) H 12/21/24 08:25 Est GFR (MDRD) Non-Af 59 (>60) L 12/21/24 08:25 BUN/Creatinine Ratio 30.7 RATIO (10-20) H 12/21/24 08:25 Glucose 117 mg/dL (70-99) H 12/21/24 08:25 Vancomycin Trough 13.5 ug/mL (5.0-15.0) 12/21/24 08:25 Microbiology Microbiology: Microbiology 12/20/24 08:30 Wound - Other Wound Culture - Preliminary Staphylococcus aureus 12/19/24 19:56 Urine, Clean Catch Urine Culture - Preliminary Culture exhibits no growth. 12/19/24 17:35 Mucosa - Nose SARS-CoV-2, Influenza & RSV (PCR) - Final Dosing Weight Weight used for dosin kg Estimated Creatinine Clearance Estimated Creatinine Clearance: 75ml/min Goal Trough Goal Trough: 15-20 mcg/mL Pharmacy Plan for Drug Dosing Pharmacy Plan for Drug Dosing: Pharmacy Service will continue to monitor and adjust dosing as required. Follow-Up Labs Follow-Up Labs: Trough: Vancomycin (12.22.24 @0)
[2024-12-21] MEDS: 0.9% Saline Lock 10 ML Syringe IV ×3 (10:13→23:21)
[2024-12-21] MEDS: Vancomycin IV 1,000 MG/200 ML BAG 200 MG IV ×2 (10:31→22:12)
--- NOTE | 2024-12-21 11:21 | CASEMGMT ---
Melita from [employer] spoke with patient and helped him apply for Medicaid. SW met with patient. Introduced self and role at [facility]. Patient stated he plans to return to [place], [place] after he serves his custodial time. Patient denied any need for resources. Jayna ACE
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
--- NOTE | 2024-12-21 13:22 | CASEMGMT ---
BRODERICK SHAIKH Assessment Face to Face with patient for initial transition planning/care coordination assessment. BRODERICK SHAIKH introduced self and role at [facility], pt voices understanding. Pt is A&Ox4 and is resting comfortably in bed and is calm. Care providers, pharmacy, and demographics verified. Pt states that he is from [facility] and that he plans to return once he is medically ready. Admitting dx: Sepsis d/t Cellulitis LACE Strata: 2 PCP:No PCP. Pt also declines the list and states that he will get set up after he serves his longterm time. Specialists: Denies Preferred Pharmacy: [facility] at the time of DC Insurance: SP. Hua from [employer] has applied the pt for [place] Prescription Benefit: None at the time. To follow. LNOK: Jessica Gomez (Mother) Living Arrangements: Pt normally lives alone in [place] but is currently serving [facility] time. Pt states that he has 114 days left to serve. ADLs/IADLs: Ind Transportation: Pt states that the longterm provided him with transportation to [facility]. Pt states that he has limited driving privileges and that his mother can drive him if needed. Care Management to follow for transportation needs at the time of DC. DME: Denies HHC/SNF: Denies ETOH: Pt states that he drinks around 6-8 beers every other day. Denies illicit drug use or smoking Wound: Pt states that there is a doctor and a nurse at the longterm that will be able to help provide wound care after DC Plan: Return to [facility] once medically ready. Follow Rx costs and transportation needs. Pt denies further questions or concerns at this time. Report given to [employer]PORATE CLAIMS EXAMINER CM and SW. Tavo Sharma RN, CM
--- NOTE | 2024-12-21 13:24 | WOUNDNOTE ---
Assisted Dr Rose in placing a splint to the right hand/arm d/t injury to the right pinky finger. pt tolerated well. arm elevated up on foam arm elevator.
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
[2024-12-22] VITALS (7 sets, daily range): BP systolic 104–138; BP diastolic 51–83; PULSE 70–102; RESP 16–18; TEMP 36.2–37.1; O2SAT 93–99; BMI 31.1
[2024-12-22 06:55] LABS: Absolute Lymphocyte Count 1.42 X10^3/uL (0.83-4.51); Absolute Neutrophil Count 4.9 X10^3/uL (2.0-7.7); Basophil# 0.05 X10^3/uL; Basophil% 0.7 % (0-1); Eosinophil# 0.14 X10^3/uL; Eosinophils% 1.8 % (0-5); Hematocrit 31.8 % (40-54); Hemoglobin 11.2 g/dL (13.0-16.5); Lymphocyte # 1.42 X10^3/ul (0.83-4.51); Lymphocyte % 18.7 % (19-41); Mean Corp Hgb Conc 35.2 g/dL (32-36); Mean Corpuscular Hgb 33.5 pg (27.0-32.0); Mean Corpuscular Volume 95.2 fL (80-94); Mean Platelet Vol. 12.5 fl (6.2-12.0); Monocyte# 1.06 X10^3/uL; NRBC Flagged by Analyzer 0 % (0-5); Neutrophil # 4.88 X10^3/uL (2.7-7.7); Neutrophil % 64.3 % (47-70); POSITIVE COUNT YES; Platelet Count 79 K/mm3 (150-450); RBC Distribution Width CV 13.5 % (11.6-14.6); RBC Distribution Width SD 47.6 fl (35.1-43.9); Red Blood Count 3.34 M/mm3 (4.6-6.2); White Blood Count 7.6 K/mm3 (4.4-11.0)
[2024-12-22 07:15] LABS: ALB/GLOB Ratio 0.7 RATIO (0.9-2.4); AST(SGOT) 92 U/L (<=37); Alanine Aminotransfer ALT/SGPT 33 U/L (<=46); Albumin, Serum 2.3 g/dL (3.5-5.0); Alkaline Phosphatase 85 U/L (40-129); Anion Gap 8 (5-15); BUN 29 mg/dL (4-19); BUN/Creat Ratio 31.3 RATIO (10-20); Calcium,Total 8.1 mg/dL (7.6-11.0); Carbon Dioxide 20.9 mmol/L (21.0-32.0); Chloride 106 mmol/L (98-108); Creatinine, Serum 0.94 mg/dL (0.70-1.20); EST Glomerular Filtration Rate 103 (>60); Estimated Creatinine Clearance 119.13 ml/min (50-250); Globulin 3.6 g/dL (2.2-4.2); Glucose 95 mg/dL (70-99); Potassium 3.6 mmol/L (3.3-5.1); Protein, Total 5.9 g/dL (5.9-8.4); Sodium Level 134 mmol/L (133-145); Total Bilirubin 3.04 mg/dL (0.00-1.30)
--- NOTE | 2024-12-22 09:08 | PN_ITS ---
Subjective Subjective Mr. Gomez is a 44-year-old male seen at bedside today for follow-up and evaluation of left lower extremity leg swelling and full-thickness wound and nail avulsion to the left great toe. No acute events overnight. Dressing has been kept clean dry and intact. He admits improvement to leg swelling to left lower extremity. He denies any pain to left lower extremity. Denies any constitutional symptoms. No acute events overnight. No other pedal complaints at this time. Objective Data Objective Data Vital Signs: Vital Signs Temp Pulse Resp BP Pulse Ox O2 Del Method O2 Flow Rate 98.2 F 74 18 138/77 H 93 Room Air 2 12/22/24 04:00 12/22/24 04:00 12/22/24 04:00 12/22/24 04:00 12/22/24 04:00 12/22/24 04:00 12/20/24 07:24 Oxygen Flow Rate (L/min) 2 Oxygen Delivery Method Room Air Weight: 98.3 kg Body Mass Index (BMI) 31.1 Intake & Output: Intake and Output for Last 24 Hours 12/20/24 12/21/24 12/22/24 23:59 23:59 23:59 Intake Total 2674 / 2914 1850.00 / 1850.00 600 / 600 Output Total 550 / 800 1025 / 1025 600 / 600 Balance 2124 / 2114 825.00 / 825.00 0 / 0 Lab / Micro Data 12/22/24 06:00 12/22/24 06:00 Labs: Laboratory Results - last 24 hr 12/21/24 08:25: Sodium 134, Potassium 3.3, Chloride 104, Carbon Dioxide 20.9 L, Anion Gap 10, BUN 46 H, Creatinine 1.49 H, Estim Creat Clear Calc 75.08, Est GFR (MDRD) Non-Af 59 L, BUN/Creatinine Ratio 30.7 H, Glucose 117 H, Calcium 8.1, T otal Bilirubin 3.36 H, Direct Bilirubin 2.20 H, AST 111 H, ALT 34, Alkaline Phosphatase 83, Total Creatine Kinase 663 H, Total Protein 6.0, Albumin 2.3 L, Globulin 3.6, Albumin/Globulin Ratio 0.6 L, Vancomycin Trough 13.5 12/22/24 06:00: WBC 7.6, RBC 3.34 L, Hgb 11.2 L, Hct 31.8 L, MCV 95.2 H, MCH 33.5 H, MCHC 35.2, RDW Std Deviation 47.6 H, RDW Coeff of Freddy 13.5, Plt Count 79 L, MPV 12.5 H, Immature Gran % (Auto) 0.500, Neut % (Auto) 64.3, Lymph % (Auto) 18.7 L, [place] % (Auto) 14.0 H, Eos % (Auto) 1.8, Baso % (Auto) 0.7, Absolute Neuts (auto) 4.9, Absolute Lymphs (auto) 1.42, Nucleated RBC % 0, Sodium 134, Potassium 3.6, Chloride 106, Carbon Dioxide 20.9 L, Anion Gap 8, BUN 29 H, Creatinine 0.94, Estim Creat Clear Calc 119.13, Est GFR (MDRD) Non-Af 103, B UN/Creatinine Ratio 31.3 H, Glucose 95, Calcium 8.1, Total Bilirubin 3.04 H, AST 92 H, ALT 33, Alkaline Phosphatase 85, Total Protein 5.9, Albumin 2.3 L, Globulin 3.6, Albumin/Globulin Ratio 0.7 L Micro: Microbiology 12/19/24 19:56 Urine, Clean Catch Urine Culture - Final Culture exhibits no growth. 12/19/24 18:10 Blood Culture (Wb) - Anticubital Left Blood Culture - Preliminary No growth in 48 hours. 12/19/24 17:30 Blood Culture (Wb) - Anticubital Left Blood Culture - Preliminary No growth in 48 hours. 12/20/24 08:30 Wound - Other Gram Stain - Final 12/20/24 08:30 Wound - Other Wound Culture - Final Staphylococcus aureus 12/19/24 17:35 Mucosa - Nose SARS-CoV-2, Influenza & RSV (PCR) - Final Radiography Diagnostic Testing: Radiology Impression Venous Doppler Study 12/19/24 17:31 Interpretation Summary Deep veins of the left lower extremity are patent and compressible segmentally. There is no evidence of left lower extremity deep vein thrombosis. The left great saphenous vein appears patent and compressible segmentally. Enlarged left inguinal lymph node measuring approximately 3.89cm x 1.28cm. Ordering Physician: Loni Antunez Referring Physician: Devin Vaz Performed By: Lobo Thakkar, RVT Hand X-Ray 12/21/24 00:00 IMPRESSION: Status post reported reduction of the right 5th metacarpal head fracture without significant change in alignment. Reading Location: [facility] Abdomen Ultrasound 12/21/24 06:00 IMPRESSION: Hepatomegaly and diffuse fatty infiltration of the liver. No evidence of portal venous thrombus. Thickened gallbladder wall with a positive sonographic Lal's sign. Sludge and gravel seen along the dependent portion of gallbladder lumen. Splenomegaly. Reading Location: [facility] Physical Exam Narrative Vascular: DP and PT pulses palpable. CFT brisk. Erythema has improved left lower extremity.. Skin temperature is warm to warm with no focal increase. Nonpitting edema appreciated left lower extremity and improved. Neurologic: Light touch is intact. Patient does not respond to epicritic sensation. Dermatologic: Full-thickness wound to the plantar medial aspect of the left great toe measuring approximately 1.4 x 1.0 x 0.1 cm. Wound base is granular. Evidence of status post total nail avulsion with improved erythema to the left great toe. No drainage or sign of infection. Musculoskeletal: No pain on palpation to left hallux nail bed. No pain on palpation to the left hallux full-thickness wound. No pain with palpation to the left lower extremity. Const alert, oriented x3 and no apparent distress Assessment & Plan Assessment/Plan (1) Non-pressure chronic ulcer of other part of left foot with necrosis of muscle: PLAN: Patient was examined and evaluated. All findings were discussed with the patient. All questions were answered to the patient satisfaction. The patient's full-thickness wound to the plantar aspect left hallux is stable with granular tissue and no sign of infection. The left hallux toenail status post total nail avulsion is healthy and granular with mild periwound maceration. No drainage. No malodor. No sign of infection. The left hallux nail bed was dressed with triple ointment antibiotic and a full- thickness wound to the plantar aspect the left hallux was dressed with Betadine paint dry gauze was applied to the toe and held together with tape. The left lower extremity is improving secondary to erythema and swelling which was dressed with a double layer Dickens compression bandage to be changed by nursing every other day. No plan for additional surgical intervention on this hospital visit. Wound care and nursing staff aware of dressing changes. Venous duplex: Negative for DVT Medicine: On board, medical management, IV antibiotics Rocephin Plastic surgery: On board, right hand fracture status post closed reduction. From a podiatry standpoint the patient is cleared to discharge back to [facility] when cleared by medicine and plastic surgery. Wound care orders/dressing change orders will be placed in discharge. Patient can follow-up in private office if able or when released from correctional facility. Podiatry will continue to follow patient while in house but from a distance. (2) Ingrowing nail with infection: (3) Other specified peripheral vascular diseases: (4) Alcoholic peripheral neuropathy:
[2024-12-22] MEDS: Acetaminophen 325 MG Tablet 650 MG PO (10:34)
[2024-12-22] MEDS: 0.9% Saline Lock 10 ML Syringe IV (10:34)
[2024-12-22] MEDS: Ceftriaxone 1 GM/50 ML BAG IV (10:34)
[2024-12-22] MEDS: Magnesium Chloride 64 MG Delay Rel.Tablet 128 MG PO ×2 (10:34→20:14)
--- NOTE | 2024-12-22 13:23 | WOUNDNOTE ---
In to reassess the right hand with Dr Rose. removed the THOMAS wrap, splint and dressing. less redness noted today. plan to re-evaluate in am. Pt tolerated well. arm elevated on foam arm elevator.
--- NOTE | 2024-12-22 14:19 | PN.HOSP_ITS ---
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) Encephalopathy, unspecified (12/19/24) Other specified peripheral vascular diseases (12/19/24) Unspecified cirrhosis of liver (12/19/24) Cutaneous abscess of left foot (12/19/24) Cellulitis of left lower limb (12/19/24) Ingrowing nail (12/19/24) Non-pressure chronic ulcer of other part of left foot with necrosis of muscle (12/19/24) Unspecified fracture of unspecified metacarpal bone, initial encounter for closed fracture (12/19/24) Objective Data Objective Data Vital Signs: Vital Signs Temp Pulse Resp BP Pulse Ox O2 Del Method O2 Flow Rate 98.3 F 78 16 134/77 H 98 Room Air 2 12/22/24 10:50 12/22/24 10:50 12/22/24 10:50 12/22/24 10:50 12/22/24 10:50 12/22/24 10:50 12/20/24 07:24 Oxygen Flow Rate (L/min) 2 Oxygen Delivery Method Room Air Weight: 216 lb 11.43 oz Body Mass Index (BMI) 31.1 Intake & Output: Intake and Output for Last 24 Hours 12/20/24 12/21/24 12/22/24 23:59 23:59 23:59 Intake Total 2674 / 2914 1850.00 / 1850.00 1250 / 1250 Output Total 550 / 800 1025 / 1025 600 / 600 Balance 2124 / 2114 825.00 / 825.00 650 / 650 Lab / Micro Data 12/22/24 06:00 12/22/24 06:00 Labs: Laboratory Results - last 24 hr 12/22/24 06:00: WBC 7.6, RBC 3.34 L, Hgb 11.2 L, Hct 31.8 L, MCV 95.2 H, MCH 33.5 H, MCHC 35.2, RDW Std Deviation 47.6 H, RDW Coeff of Freddy 13.5, Plt Count 79 L, MPV 12.5 H, Immature Gran % (Auto) 0.500, Neut % (Auto) 64.3, Lymph % (Auto) 18.7 L, [place] % (Auto) 14.0 H, Eos % (Auto) 1.8, Baso % (Auto) 0.7, Absolute Neuts (auto) 4.9, Absolute Lymphs (auto) 1.42, Nucleated RBC % 0, Sodium 134, Potassium 3.6, Chloride 106, Carbon Dioxide 20.9 L, Anion Gap 8, BUN 29 H, Creatinine 0.94, Estim Creat Clear Calc 119.13, Est GFR (MDRD) Non-Af 103, B UN/Creatinine Ratio 31.3 H, Glucose 95, Calcium 8.1, Total Bilirubin 3.04 H, AST 92 H, ALT 33, Alkaline Phosphatase 85, Total Protein 5.9, Albumin 2.3 L, Globulin 3.6, Albumin/Globulin Ratio 0.7 L Micro: Microbiology 12/19/24 19:56 Urine, Clean Catch Urine Culture - Final Culture exhibits no growth. 12/19/24 18:10 Blood Culture (Wb) - Anticubital Left Blood Culture - Preliminary No growth in 48 hours. 12/19/24 17:30 Blood Culture (Wb) - Anticubital Left Blood Culture - Preliminary No growth in 48 hours. 12/20/24 08:30 Wound - Other Gram Stain - Final 12/20/24 08:30 Wound - Other Wound Culture - Final Staphylococcus aureus 12/19/24 17:35 Mucosa - Nose SARS-CoV-2, Influenza & RSV (PCR) - Final Physical Exam Narrative Seen and examined Redness and swelling of the right and left hands are better. Right hand on ulnar splint with 4th and 5th fingers splinted Patient has bilateral leg swelling for more than 6-month but left leg got more swollen around ankle and feet, patient does not know the exact timeline. There is also ulcer on the left great toe, plantar side. Patient has been drinking alcohol since age of 19 previously was drinking 30 beers every day but has now cut to 6-8 every other day. Physical exam General: Alert, Oriented x3, Cooperative HEENT: Glued lacerated wound on the right eyebrow. Right upper lid edematous/bruised purplish, improving. Icterus present, PERRLA, EOMI, Normocephalic Oral: No Gingival or Mucosal Lesions/ Ulcerations Neck: Supple, No JVD, Negative Carotid Bruits Chest wall/Lungs: Air entry diminished in bilateral lung bases. No crepitation/rhonchi Cardiovascular: Regular rate, Regular Rhythm, Normal S1, Normal S2, No M/G/R Abdomen: Shifting dullness present. Ascites. Bowel Sounds soft, Soft, Non Tender, Non-Distended. Liver about 1 enlarged. Spleen palpable : No dysuria. No renal angle tenderness. No suprapubic tenderness. Extremities: 2+ edema, Capillary Refill Less than 3 Seconds Skin: Ulcer on the left great toe. Erythema over left hand improved. Right fourth finger splinted and bandaged. Musculoskeletal: No Tenderness to Palpation of Joints or Extremities Neurological: Cranial nerves II-XII grossly intact, DTR 2+/4. No acute focal neurological deficit. Psych/Mental Status: Normal Affect, Appropriate. Assessment & Plan Assessment/Plan (1) Sepsis: (2) Cellulitis of left leg: (3) Cirrhosis of liver: (4) Encephalopathy: PLAN: Plan Patient is a 44-year-old male who presented to [facility] ED on 12/19/24 from long term with fevers, altered mental status and worsening left lower extremity swelling and erythema. The patient has history of chronic alcohol use, chronic swelling of his lower extremities for 6 months. He also has wounds on his feet, hit his head on the wall in the long term but no LOC. Not undetectable 1. Sepsis without shock suspected secondary to left lower extremity cellulitis: Patient has tiny ulcer over the left great toe , plantar aspect which was superficially debrided for culture. Continue broad-spectrum antibiotic. The patient presented with sepsis with clinical indicators of fever, tachycardia, tachypnea and due to skin and soft tissue infection/lower extremity cellulitis with acute sepsis-related organ dysfunction as evidenced by elevated lactate, ABENA, acute encephalopathy and elevated bilirubin. CT scan of lower extremity shows marked soft tissue swelling with subcutaneous tissue thickening and stranding but no abnormal collection. Venous duplex of left lower extremities ordered. On IV vancomycin and Zosyn. 12/21: Wound culture growing 3+ Staph aureus. Urine culture no growth. IV antibiotic narrowed down from Zosyn to ceftriaxone. Continue vancomycin 12/22: Wound culture shows Staph aureus 3+ MSSA. Discussed with ID and patient is good on the above antibiotic IV ceftriaxone inpatient and discharged on Keflex. Vancomycin discontinued. 2. Acute metabolic encephalopathy: Patient is awake alert and x 3 today. Acute encephalopathy resolved. Patient also feels apologetic that he has been drinking high. ? Patient was A&O x 3 in the ED but quite somnolent and frequently not answering questions due to somnolence. Suspect primarily due to infection as above. 12/21: Patient on lactulose and Xifaxan 12/22: Acute metabolic encephalopathy resolved. 3. ABENA with rhabdomyolysis with fracture of head of the right fifth metacarpal: ? Creatinine 2.68 on admit, baseline suspected to be around 0.8. CPK 4412 on admit. Patient also has swelling of right and left hand more on the right MC joint area prominent in 3rd-5th MC joint and fingers. Patient also has swelling of left lower extremity more than right prominent on the left ankle and feet. Hand and feet x-ray were done which reported normal. Ankle x-ray shows soft tissue swelling but no acute fracture. X-ray of right hand shows fracture head of the right metacarpal 12/21: CK6 163. Serum magnesium and phosphorus normal range. Mild hypokalemia, K3.3 4. Decompensated alcoholic cirrhosis, cholelithiasis ? T. bili 5.07, direct bili 2.96, AST 170, ALT 39, alk phos 109 on admit. These labs were slightly worsened from prior labs on 12/18, baseline unknown. INR 1.9. CT abdomen pelvis showed suspected liver cirrhosis with evidence of splenomegaly as well as multiple abdominal varices; also showed cholelithiasis without gallbladder wall thickening. Right upper quadrant ultrasound with Doppler ordered to rule out portal vein thrombosis. Given dose of IV vitamin K 5 mg in the ED. Follow-up a.m. LFTs and INR level. Low threshold to consult GI as needed. 12/21: TB 3.36, DB 2.2 showing improvement. Right upper quadrant ultrasonogram shows hepatomegaly with diffuse fatty infiltration with no evidence of portal venous thrombosis. Thickened GB with sludge and gravel along dependent portion of GB lumen. Splenomegaly. Reported sonographic Lal sign but patient does not have clinical RUQ tenderness or Lal sign 5. Hypokalemia ? Potassium 2.9 on admit. Recheck Potassium. Magnesium low normal and is being replaced mag and Phos normal. Replete as needed. 12/21: Mild hypokalemia, potassium replaced 12/22: K3.3, low normal. Potassium replaced 6. Right eyebrow laceration with periorbital swelling ? Secondary to a fall in long term where he hit his face on the wall. CT brain with small hematoma around the right orbit but no acute intracranial hemorrhage. 2 cm right eyebrow laceration was cleansed and closed with glue in the ED. Fracture of right metacarpal head: X-ray showed acute fracture of head of right fifth metacarpal. Plastic surgeon Dr. Niño was consulted. He did closed reduction and applied a splint. Repeat x-ray shows reduction of right fifth metacarpal head fracture without significant change in alignment. 7. Chronic alcohol use with acute alcoholic hepatitis: Patient's previous 3.8 12/18, 5.07 yesterday and today 3.5 mg/dL, mainly direct hyperbilirubinemia. 8. Incarceration ? Case management consulted. Patient is currently in long term. 9. Thrombocytopenia ? Platelet count 71 on admit. Platelet count was 98 on 12/18. Platelet count 63,000. 10. Abnormal UA ? UA on admit with 25 leukocyte esterase, negative nitrates, 4+ bacteria. Patient denies burning with urination 11. Class I obesity ? BMI 30 on admit. Encouraged weight loss. DVT prophylaxis: Discontinue heparin CODE STATUS: Full code, unverified Expected disposition: TBD Microbiology Past 72 Hours 12/19/24 19:56 Urine, Clean Catch Urine Culture - Final Culture exhibits no growth. 12/19/24 18:10 Blood Culture (Wb) - Anticubital Left Blood Culture - Preliminary No growth in 48 hours. 12/19/24 17:30 Blood Culture (Wb) - Anticubital Left Blood Culture - Preliminary No growth in 48 hours. 12/20/24 08:30 Wound - Other Gram Stain - Final 12/20/24 08:30 Wound - Other Wound Culture - Final Staphylococcus aureus 12/19/24 17:35 Mucosa - Nose SARS-CoV-2, Influenza & RSV (PCR) - Final Laboratory Results 12/22/24 06:00: WBC 7.6, RBC 3.34 L, Hgb 11.2 L, Hct 31.8 L, MCV 95.2 H, MCH 33.5 H, MCHC 35.2, RDW Std Deviation 47.6 H, RDW Coeff of Freddy 13.5, Plt Count 79 L, MPV 12.5 H, Immature Gran % (Auto) 0.500, Neut % (Auto) 64.3, Lymph % (Auto) 18.7 L, [place] % (Auto) 14.0 H, Eos % (Auto) 1.8, Baso % (Auto) 0.7, Absolute Neuts (auto) 4.9, Absolute Lymphs (auto) 1.42, Nucleated RBC % 0, Sodium 134, Potassium 3.6, Chloride 106, Carbon Dioxide 20.9 L, Anion Gap 8, BUN 29 H, Creatinine 0.94, Estim Creat Clear Calc 119.13, Est GFR (MDRD) Non-Af 103, B UN/Creatinine Ratio 31.3 H, Glucose 95, Calcium 8.1, Total Bilirubin 3.04 H, AST 92 H, ALT 33, Alkaline Phosphatase 85, Total Protein 5.9, Albumin 2.3 L, Globulin 3.6, Albumin/Globulin Ratio 0.7 L Charges/Coding Visit Charges Inpatient E&M: 32485 Subs Hosp L2
[2024-12-22] MEDS: Potassium Chloride Oral Tablet 20 MEQ 40 MEQ PO ×2 (15:03→18:15)
--- NOTE | 2024-12-22 15:11 | PN.SURG_ITS ---
Subjective Subjective Doing well Pain controlled Has been elevating right upper extremity and that is help with the pain Objective Data Objective Data Vital Signs: Vital Signs Temp Pulse Resp BP Pulse Ox O2 Del Method O2 Flow Rate 98.3 F 78 16 134/77 H 98 Room Air 2 12/22/24 10:50 12/22/24 10:50 12/22/24 10:50 12/22/24 10:50 12/22/24 10:50 12/22/24 10:50 12/20/24 07:24 Oxygen Flow Rate (L/min) 2 Oxygen Delivery Method Room Air Weight: 216 lb 11.43 oz Body Mass Index (BMI) 31.1 Intake & Output: Intake and Output for Last 24 Hours 12/20/24 12/21/24 12/22/24 23:59 23:59 23:59 Intake Total 2674 / 2914 1850.00 / 1850.00 1250 / 1250 Output Total 550 / 800 1025 / 1025 600 / 600 Balance 2124 / 2114 825.00 / 825.00 650 / 650 Lab / Micro Data 12/22/24 06:00 12/22/24 06:00 Labs: Laboratory Results - last 24 hr 12/22/24 06:00: WBC 7.6, RBC 3.34 L, Hgb 11.2 L, Hct 31.8 L, MCV 95.2 H, MCH 33.5 H, MCHC 35.2, RDW Std Deviation 47.6 H, RDW Coeff of Freddy 13.5, Plt Count 79 L, MPV 12.5 H, Immature Gran % (Auto) 0.500, Neut % (Auto) 64.3, Lymph % (Auto) 18.7 L, [place] % (Auto) 14.0 H, Eos % (Auto) 1.8, Baso % (Auto) 0.7, Absolute Neuts (auto) 4.9, Absolute Lymphs (auto) 1.42, Nucleated RBC % 0, Sodium 134, Potassium 3.6, Chloride 106, Carbon Dioxide 20.9 L, Anion Gap 8, BUN 29 H, Creatinine 0.94, Estim Creat Clear Calc 119.13, Est GFR (MDRD) Non-Af 103, B UN/Creatinine Ratio 31.3 H, Glucose 95, Calcium 8.1, Total Bilirubin 3.04 H, AST 92 H, ALT 33, Alkaline Phosphatase 85, Total Protein 5.9, Albumin 2.3 L, Globulin 3.6, Albumin/Globulin Ratio 0.7 L Micro: Microbiology 12/19/24 19:56 Urine, Clean Catch Urine Culture - Final Culture exhibits no growth. 12/19/24 18:10 Blood Culture (Wb) - Anticubital Left Blood Culture - Preliminary No growth in 48 hours. 12/19/24 17:30 Blood Culture (Wb) - Anticubital Left Blood Culture - Preliminary No growth in 48 hours. 12/20/24 08:30 Wound - Other Gram Stain - Final 12/20/24 08:30 Wound - Other Wound Culture - Final Staphylococcus aureus 12/19/24 17:35 Mucosa - Nose SARS-CoV-2, Influenza & RSV (PCR) - Final Physical Exam Narrative Right upper Extremity Splint removed and replaced on rounds today for exam Inspection: Less induration and redness. Still some swelling status post reduction. No purulent drainage or signs of abscess formation Palpation: Tenderness to palpation over the small finger metacarpal but no tenderness to palpation of the ring finger. Motor: Able to bend and extend all MP, PIP, and DIP joints. Sensory: Intact to light touch on the radial and ulnar borders. Vascular: Finger tips are warm and well perfused with <2 second capillary refill. Assessment & Plan Assessment/Plan (1) Fracture of metacarpal of right hand, closed: PLAN: Hand cellulitis improving Continue IV antibiotics Plastics will examine the hand again tomorrow with the splint removed and replaced. Anticipate 4 weeks of splinting/casting for the right hand in an ulnar gutter splint/cast for the treatment of the fifth metacarpal fracture Charges/Coding Procedures Integumentary [id number]: [id number] Global Visit
[2024-12-23 03:15] VITALS: BP 155/82; PULSE 69; RESP 18; TEMP 36.8; O2SAT 97
[2024-12-23 05:40] VITALS: BMI 34.0
[2024-12-23 06:48] LABS: Absolute Lymphocyte Count 1.74 X10^3/uL (0.83-4.51); Absolute Neutrophil Count 5.4 X10^3/uL (2.0-7.7); Basophil# 0.09 X10^3/uL; Basophil% 1.1 % (0-1); Eosinophil# 0.22 X10^3/uL; Eosinophils% 2.6 % (0-5); Hematocrit 33.9 % (40-54); Hemoglobin 11.9 g/dL (13.0-16.5); Lymphocyte # 1.74 X10^3/ul (0.83-4.51); Lymphocyte % 20.4 % (19-41); Mean Corp Hgb Conc 35.1 g/dL (32-36); Mean Corpuscular Hgb 33.3 pg (27.0-32.0); Mean Platelet Vol. 12.1 fl (6.2-12.0); Monocyte# 1.03 X10^3/uL; Monocyte% 12.1 % (0-10); NRBC Flagged by Analyzer 0 % (0-5); Neutrophil # 5.38 X10^3/uL (2.7-7.7); POSITIVE COUNT YES; Platelet Count 95 K/mm3 (150-450); RBC Distribution Width CV 13.2 % (11.6-14.6); RBC Distribution Width SD 46.5 fl (35.1-43.9); Red Blood Count 3.57 M/mm3 (4.6-6.2); White Blood Count 8.5 K/mm3 (4.4-11.0)
[2024-12-23 07:11] LABS: ALB/GLOB Ratio 0.6 RATIO (0.9-2.4); AST(SGOT) 85 U/L (<=37); Alanine Aminotransfer ALT/SGPT 36 U/L (<=46); Albumin, Serum 2.3 g/dL (3.5-5.0); Alkaline Phosphatase 91 U/L (40-129); Anion Gap 7 (5-15); BUN 19 mg/dL (4-19); Calcium,Total 8.3 mg/dL (7.6-11.0); Carbon Dioxide 21.8 mmol/L (21.0-32.0); Chloride 106 mmol/L (98-108); Creatinine, Serum 0.77 mg/dL (0.70-1.20); EST Glomerular Filtration Rate 114 (>60); Estimated Creatinine Clearance 151.94 ml/min (50-250); Globulin 3.7 g/dL (2.2-4.2); Glucose 95 mg/dL (70-99); Sodium Level 135 mmol/L (133-145); Total Bilirubin 3.54 mg/dL (0.00-1.30)
[2024-12-23 09:00] VITALS: BP 136/73; PULSE 78; RESP 16; TEMP 36.7; O2SAT 97
[2024-12-23] MEDS: Potassium Chloride Oral Tablet 20 MEQ 40 MEQ PO (09:16)
[2024-12-23] MEDS: Magnesium Chloride 64 MG Delay Rel.Tablet 128 MG PO (09:16)
[2024-12-23] MEDS: Ceftriaxone 1 GM/50 ML BAG IV (09:16)
[2024-12-23] MEDS: 0.9% Saline Lock 10 ML Syringe IV (09:16)
[2024-12-23] MEDS: Acetaminophen 325 MG Tablet 650 MG PO (09:23)
--- NOTE | 2024-12-23 12:28 | DCINST_ITS ---
Discharge Instructions DC O2, CPAP, BIPAP needs Home O2 Discharge instructions: No Follow Up Care Test Results: Test results from this visit will be discussed in further detail at your follow- up appointment, if applicable. Discharge Plan Admission Admit Date/Time: 12/19/24 20:55 Attending Provider: Joe Davis Primary Care Provider: Care Physician,No Primary Consulting Providers: Devin Vaz; Dawit Lipscomb; [place] Instructions Additional Instructions / Restrictions: Wound care orders: Removal dressing of the left lower extremity hallux and left lower extremity. 1. Wash wound, left hallux, with antibacterial soap and sterile water. 2. Pat dry 3. Apply a drop size amount of triple antibiotic to left hallux nail bed. A pplied Betadine paint to full-thickness wound plantar aspect left hallux. 4. Apply dry sterile gauze and tape in place. 5. Apply 2 layers of cast padding from the sulcus of toes to mid calf on the l eft lower extremity. Wrapped with 4 inch Philipp bandages from sulcus of toes to mid calf. 6. Change left hallux dressing Q2D along with compression wrap to the left lower extremity. Discharge Orders/Prescriptions Prescriptions: New potassium chloride 20 mEq Tablet,Er Particles/Crystals 40 meq PO DAILY 7 Days Qty: 14 0RF cephalexin 500 mg tablet 500 mg PO Q8H 7 Days Qty: 21 0RF Lactobacillus acidophilus 1 billion cell tablet 1,000 mmu cells PO BID 10 Days Qty: 20 0RF Rx Instructions: [id number] Referrals / Follow Up: Dawit Lipscomb DPM [Med Staff - Active Staff] - Within 2 Weeks Care Physician,No Primary [Primary Care Provider] - Disposition Disposition (needs filled in before D/C Order can be placed): Home, Self Care
--- NOTE | 2024-12-23 12:37 | PCM.DC.SUM ---
Providers Date of Admission: 12/19/24 Date of Discharge: 12/23/24 Primary Care Physician: Becka Primary Care Phys Consultations 12/20/24 08:52 Consult: Podiatry Routine Consulting Provider: Dawit Lipscomb Reason for Consult: left toe ulcer, pressure EMERGENT Consult: No Notified: Yes Date Notified: 12/20/24 Time Notified: 08:52 Method of Notification: Verbal 12/21/24 08:32 Consult: Plastic Surgery Routine Consulting Provider: Rio Rose Reason for Consult: right 5th MC HEAD FRACTURE EMERGENT Consult: No Notified: Yes Date Notified: 12/21/24 Time Notified: 08:32 Method of Notification: Text Reason For Visit: SEPSIS DUE TO CELLUITIS +/- UTI Diagnosis Discharge Diagnosis (1) Fracture of metacarpal of right hand, closed: Status: Acute Code(s): S62.309A - Unspecified fracture of unspecified metacarpal bone, initial encounter for closed fracture Plan Patient is a 44-year-old male who presented to [facility] ED on 12/19/24 from intermediate with fevers, altered mental status and worsening left lower extremity swelling and erythema. The patient has history of chronic alcohol use, chronic swelling of his lower extremities for 6 months. He also has wounds on his feet, hit his head on the wall in the intermediate but no LOC. Not undetectable 1. Sepsis without shock suspected secondary to left lower extremity cellulitis: Patient has tiny ulcer over the left great toe , plantar aspect which was superficially debrided for culture. Continue broad-spectrum antibiotic. The patient presented with sepsis with clinical indicators of fever, tachycardia, tachypnea and due to skin and soft tissue infection/lower extremity cellulitis with acute sepsis-related organ dysfunction as evidenced by elevated lactate, ABENA, acute encephalopathy and elevated bilirubin. CT scan of lower extremity shows marked soft tissue swelling with subcutaneous tissue thickening and stranding but no abnormal collection. Venous duplex of left lower extremities ordered. On IV vancomycin and Zosyn. 12/21: Wound culture growing 3+ Staph aureus. Urine culture no growth. IV antibiotic narrowed down from Zosyn to ceftriaxone. Continue vancomycin 12/22: Wound culture shows Staph aureus 3+ MSSA. Discussed with ID and patient is good on the above antibiotic IV ceftriaxone inpatient and discharged on Keflex. Vancomycin discontinued. 12/23: Patient is discharged on 7 more days of Keflex. He had about 5 days of antibiotics. Discussed with plastic surgery and he will follow him. 2. Acute metabolic encephalopathy: Patient is awake alert and x 3 today. Acute encephalopathy resolved. Patient also feels apologetic that he has been drinking high. ? Patient was A&O x 3 in the ED but quite somnolent and frequently not answering questions due to somnolence. Suspect primarily due to infection as above. 12/21: Patient on lactulose and Xifaxan 12/22: Acute metabolic encephalopathy resolved. 3. ABENA with rhabdomyolysis with fracture of head of the right fifth metacarpal: ? Creatinine 2.68 on admit, baseline suspected to be around 0.8. CPK 4412 on admit. Patient also has swelling of right and left hand more on the right MC joint area prominent in 3rd-5th MC joint and fingers. Patient also has swelling of left lower extremity more than right prominent on the left ankle and feet. Hand and feet x-ray were done which reported normal. Ankle x-ray shows soft tissue swelling but no acute fracture. X-ray of right hand shows fracture head of the right metacarpal 12/21: CK6 163. Serum magnesium and phosphorus normal range. Mild hypokalemia, K3.3 12/23: ABENA resolved. 4. Decompensated alcoholic cirrhosis, cholelithiasis ? T. bili 5.07, direct bili 2.96, AST 170, ALT 39, alk phos 109 on admit. These labs were slightly worsened from prior labs on 12/18, baseline unknown. INR 1.9. CT abdomen pelvis showed suspected liver cirrhosis with evidence of splenomegaly as well as multiple abdominal varices; also showed cholelithiasis without gallbladder wall thickening. Right upper quadrant ultrasound with Doppler ordered to rule out portal vein thrombosis. Given dose of IV vitamin K 5 mg in the ED. Follow-up a.m. LFTs and INR level. Low threshold to consult GI as needed. 12/21: TB 3.36, DB 2.2 showing improvement. Right upper quadrant ultrasonogram shows hepatomegaly with diffuse fatty infiltration with no evidence of portal venous thrombosis. Thickened GB with sludge and gravel along dependent portion of GB lumen. Splenomegaly. Reported sonographic Lal sign but patient does not have clinical RUQ tenderness or Lal sign 12/23: Follow-up in GI clinic. 5. Hypokalemia ? Potassium 2.9 on admit. Recheck Potassium. Magnesium low normal and is being replaced mag and Phos normal. Replete as needed. 12/21: Mild hypokalemia, potassium replaced 12/22: K3.3, low normal. Potassium replaced 12/23: Prescription for potassium given 6. Right eyebrow laceration with periorbital swelling ? Secondary to a fall in intermediate where he hit his face on the wall. CT brain with small hematoma around the right orbit but no acute intracranial hemorrhage. 2 cm right eyebrow laceration was cleansed and closed with glue in the ED. Fracture of right metacarpal head: X-ray showed acute fracture of head of right fifth metacarpal. Plastic surgeon Dr. Niño was consulted. He did closed reduction and applied a splint. Repeat x-ray shows reduction of right fifth metacarpal head fracture without significant change in alignment. 7. Chronic alcohol use with acute alcoholic hepatitis: Patient's previous 3.8 12/18, 5.07 yesterday and today 3.5 mg/dL, mainly direct hyperbilirubinemia. 8. Incarceration ? Case management consulted. Patient is currently in intermediate. 9. Thrombocytopenia ? Platelet count 71 on admit. Platelet count was 98 on 12/18. Platelet count 63,000. 10. Abnormal UA ? UA on admit with 25 leukocyte esterase, negative nitrates, 4+ bacteria. Patient denies burning with urination 11. Class I obesity ? BMI 30 on admit. Encouraged weight loss. DVT prophylaxis: Discontinue heparin CODE STATUS: Full code, unverified Discharge medication reconciliation done. Discharge follow-up instructions completed. Discharge process discussed with the patient and all questions were answered to patient's satisfaction. Follow with PCP in 1 to 2 weeks Total time spent, exact 35 minutes on discharge meds reconciliation, examination, coordination of care with nurses and ancillary staff, review of imaging and blood test and discussion with the patient on follow-up instructions. Microbiology Past 72 Hours 12/19/24 19:56 Urine, Clean Catch Urine Culture - Final Culture exhibits no growth. 12/19/24 18:10 Blood Culture (Wb) - Anticubital Left Blood Culture - Preliminary No growth in 48 hours. 12/19/24 17:30 Blood Culture (Wb) - Anticubital Left Blood Culture - Preliminary No growth in 48 hours. 12/20/24 08:30 Wound - Other Gram Stain - Final 12/20/24 08:30 Wound - Other Wound Culture - Final Staphylococcus aureus Laboratory Results 12/23/24 06:28: WBC 8.5, RBC 3.57 L, Hgb 11.9 L, Hct 33.9 L, MCV 95.0 H, MCH 33.3 H, MCHC 35.1, RDW Std Deviation 46.5 H, RDW Coeff of Freddy 13.2, Plt Count 95 L, MPV 12.1 H, Immature Gran % (Auto) 0.800, Neut % (Auto) 63.0, Lymph % (Auto) 20.4, [place] % (Auto) 12.1 H, Eos % (Auto) 2.6, Baso % (Auto) 1.1 H, Absolute Neuts (auto) 5.4, Absolute Lymphs (auto) 1.74, Nucleated RBC % 0, Sodium 135, Potassium 4.0, Chloride 106, Carbon Dioxide 21.8, Anion Gap 7, BUN 19, Creatinine 0.77, Estim Creat Clear Calc 151.94, Est GFR (MDRD) Non-Af 114, BUN/Creatinine Ratio 25.0 H, Glucose 95, Calcium 8.3, Total Bilirubin 3.54 H, AST 85 H, ALT 36, Alkaline Phosphatase 91, Total Protein 6.0, Albumin 2.3 L, Globulin 3.7, Albumin/Globulin Ratio 0.6 L Medications at Discharge Home Medications Lactobacillus acidophilus 1 billion cell tablet 1,000 mmu cells PO BID 10 days #20 tabs 12/23/24 cephalexin 500 mg tablet 500 mg PO Q8H 7 days #21 tabs 12/23/24 potassium chloride 20 mEq tablet,extended release(part/cryst) 40 meq (2 x 20 mEq) PO DAILY 1 week #14 tabs 12/23/24 Physical Exam Narrative Seen and examined Redness and swelling of the right and left hands, bruise and edema of right upper eyebrow are better. Right hand on ulnar splint with 4th and 5th fingers; splinted Patient has bilateral leg swelling for more than 6-month but left leg got more swollen around ankle and feet, patient does not know the exact timeline. There is also ulcer on the left great toe, plantar side. Patient has been drinking alcohol since age of 19 previously was drinking 30 beers every day but has now cut to 6-8 every other day. Physical exam General: Alert, Oriented x3, Cooperative HEENT: Glued lacerated wound on the right eyebrow. Icterus present, PERRLA, EOMI, Normocephalic Oral: No Gingival or Mucosal Lesions/ Ulcerations Neck: Supple, No JVD, Negative Carotid Bruits Chest wall/Lungs: Air entry diminished in bilateral lung bases. No crepitation/rhonchi Cardiovascular: Regular rate, Regular Rhythm, Normal S1, Normal S2, No M/G/R Abdomen: Shifting dullness present. Ascites. Bowel Sounds soft, Soft, Non Tender, Non-Distended. Liver about 1 enlarged. Spleen palpable : No dysuria. No renal angle tenderness. No suprapubic tenderness. Extremities: 2+ edema, Capillary Refill Less than 3 Seconds Skin: Ulcer on the left great toe. Erythema over left hand improved. Right fourth finger splinted and bandaged. Musculoskeletal: No Tenderness to Palpation of Joints or Extremities Neurological: Cranial nerves II-XII grossly intact, DTR 2+/4. No acute focal neurological deficit. Psych/Mental Status: Normal Affect, Appropriate. Weight / BMI Weight Weight: 237 lb 3.478 oz Body Mass Index (BMI) 34.0 ABG / Lab / Microbiology Data 12/23/24 06:28 12/23/24 06:28 Laboratory: Laboratory Results - last 24 hr 12/23/24 06:28: WBC 8.5, RBC 3.57 L, Hgb 11.9 L, Hct 33.9 L, MCV 95.0 H, MCH 33.3 H, MCHC 35.1, RDW Std Deviation 46.5 H, RDW Coeff of Freddy 13.2, Plt Count 95 L, MPV 12.1 H, Immature Gran % (Auto) 0.800, Neut % (Auto) 63.0, Lymph % (Auto) 20.4, [place] % (Auto) 12.1 H, Eos % (Auto) 2.6, Baso % (Auto) 1.1 H, Absolute Neuts (auto) 5.4, Absolute Lymphs (auto) 1.74, Nucleated RBC % 0, Sodium 135, Potassium 4.0, Chloride 106, Carbon Dioxide 21.8, Anion Gap 7, BUN 19, Creatinine 0.77, Estim Creat Clear Calc 151.94, Est GFR (MDRD) Non-Af 114, BUN/Creatinine Ratio 25.0 H, Glucose 95, Calcium 8.3, Total Bilirubin 3.54 H, AST 85 H, ALT 36, Alkaline Phosphatase 91, Total Protein 6.0, Albumin 2.3 L, Globulin 3.7, Albumin/Globulin Ratio 0.6 L Microbiology: Microbiology 12/19/24 19:56 Urine, Clean Catch Urine Culture - Final Culture exhibits no growth. 12/19/24 18:10 Blood Culture (Wb) - Anticubital Left Blood Culture - Preliminary No growth in 48 hours. 12/19/24 17:30 Blood Culture (Wb) - Anticubital Left Blood Culture - Preliminary No growth in 48 hours. 12/20/24 08:30 Wound - Other Gram Stain - Final 12/20/24 08:30 Wound - Other Wound Culture - Final Staphylococcus aureus 12/19/24 17:35 Mucosa - Nose SARS-CoV-2, Influenza & RSV (PCR) - Final D/C Instructions DC O2, CPAP, BIPAP Needs Home O2 Discharge instructions: No Meaningful Use Info Meaningful Use Meaningful Use Diagnoses (Choose all that apply): None applicable Ischemic Stroke Statin Dosing Therapy Reference: STATIN DOSE THERAPY REFERENCE: * Patients > 75 years receive moderate or high dose statin therapy. * Patients 75 years or YOUNGER should receive HIGH intensity statin dose unless contraindicated. You will be required to document reason for non-treatment if statin daily dose does not meet guidelines. HIGH DOSE STATIN THERAPY DAILY Atorvastatin > than or = to 40 mg Rosuvastatin > than or = to 20 mg Amlodipine + Atorvastatin > than or = to 2.5/40 mg Ezetimibe + Simvastatin 10/80 mg Simvastatin 80mg Discharge Plan Admission Admit Date/Time: 12/19/24 20:55 Attending Provider: Joe Davis Primary Care Provider: Care Physician,No Primary Consulting Providers: Devin Vaz; Dawit Lipscomb; Rio Rose Instructions Additional Instructions / Restrictions: Wound care orders: Removal dressing of the left lower extremity hallux and left lower extremity. 1. Wash wound, left hallux, with antibacterial soap and sterile water. 2. Pat dry 3. Apply a drop size amount of triple antibiotic to left hallux nail bed. Applied Betadine paint to full-thickness wound plantar aspect left hallux. 4. Apply dry sterile gauze and tape in place. 5. Apply 2 layers of cast padding from the sulcus of toes to mid calf on the left lower extremity. Wrapped with 4 inch Philipp bandages from sulcus of toes to mid calf. 6. Change left hallux dressing Q2D along with compression wrap to the left lower extremity. Discharge Orders/Prescriptions Prescriptions: New potassium chloride 20 mEq Tablet,Er Particles/Crystals 40 meq PO DAILY 7 Days Qty: 14 0RF cephalexin 500 mg tablet 500 mg PO Q8H 7 Days Qty: 21 0RF Lactobacillus acidophilus 1 billion cell tablet 1,000 mmu cells PO BID 10 Days Qty: 20 0RF Rx Instructions: [id number] Referrals / Follow Up: Dawit Lipscomb DPM [Med Staff - Active Staff] - Within 2 Weeks Care Physician,No Primary [Primary Care Provider] - Jeffery Mayer DO [Med Staff - Active Staff] - Within 1 Month Rio Rose MD [Med Staff - Active Staff] - Within 1 Week Disposition Disposition (needs filled in before D/C Order can be placed): Home, Self Care Charges/Coding Visit Charges Inpatient E&M: 26752 Disch Hosp >30min
--- NOTE | 2024-12-23 13:36 | PHA.DC_ITS ---
Pharmacy [facility] Service has performed discharge medication reconciliation and counseling for this patient. 1. CEPHALEXIN 500MG PO Q8 X 7 DAYS 2. LACTOBACILLUS 1C PO BID 3. POTASSIUM CHLORIDE 40MEQ PO DAILY The patient's discharge medication list was reviewed for discrepancies and discrepancies were resolved. The patient was counseled on the following discharge medications and changes in medications for homegoing were reviewed. The Reason for Use, instructions for use, and potential side effects were reviewed for all new medications. The patient's questions regarding all of their medications were answered. The patient was able to verbally demonstrate an understanding of their discharge medications. Medications at Discharge Home Medications Lactobacillus acidophilus 1 billion cell tablet 1,000 mmu cells PO BID 10 days #20 tabs 12/23/24 cephalexin 500 mg tablet 500 mg PO Q8H 7 days #21 tabs 12/23/24 potassium chloride 20 mEq tablet,extended release(part/cryst) 40 meq (2 x 20 mEq) PO DAILY 1 week #14 tabs 12/23/24
[2024-12-23 14:55] VITALS: BP 134/72; PULSE 74; RESP 16; TEMP 36.6; O2SAT 98
== END 2024-12-23 15:12 | disposition home or self-care (01) | DRG 853 ==
LOC: ED 19:51 → ICU 23:01 → PCU 12-20 20:13 → ICU 12-23 14:49 → PCU 12-23 14:49
PROVIDERS: Physician Assistant; Admitting Provider Hospitalist; Emergency Provider Emergency Medicine; Referring Provider Hospitalist; Visit Provider Internal Medicine
DX: A41.01 Sepsis due to Methicillin susceptible Staphylococcus aureus (principal); G93.41 Metabolic encephalopathy; M62.82 Rhabdomyolysis; K76.6 Portal hypertension; N17.9 Acute kidney failure, unspecified; N39.0 Urinary tract infection, site not specified; L03.116 Cellulitis of left lower limb; L03.113 Cellulitis of right upper limb; D69.6 Thrombocytopenia, unspecified; L97.523 Non-pressure chronic ulcer of other part of left foot with necrosis of muscle; R16.2 Hepatomegaly with splenomegaly, not elsewhere classified; K70.10 Alcoholic hepatitis without ascites; Z68.30 Body mass index [BMI] 30.0-30.9, adult; S91.311A Laceration without foreign body, right foot, initial encounter; S01.111A Laceration without foreign body of right eyelid and periocular area, initial encounter; S01.81XA Laceration without foreign body of other part of head, initial encounter; E87.6 Hypokalemia; K80.20 Calculus of gallbladder without cholecystitis without obstruction; S62.336A Displaced fracture of neck of fifth metacarpal bone, right hand, initial encounter for closed fracture; S05.11XA Contusion of eyeball and orbital tissues, right eye, initial encounter; S91.312A Laceration without foreign body, left foot, initial encounter; K76.0 Fatty (change of) liver, not elsewhere classified; K82.8 Other specified diseases of gallbladder; K70.30 Alcoholic cirrhosis of liver without ascites; L97.529 Non-pressure chronic ulcer of other part of left foot with unspecified severity; Z79.2 Long term (current) use of antibiotics; R60.0 Localized edema; E66.811 Obesity, class 1
CPT/HCPCS: 36415; 51702; 70450; 71045; 73110; 73130; 73590; 73610; 73630; 73700; 74176; 76705; 80048; 80053; 80076; 80202; 81001; 82248; 82550; 83605; 83690; 83735; 84100; 84132; 85025; 85027; 85610; 85652; 85730; 86140; 87040; 87070; 87077; 87086; 87186; 87205; 87631; 93005; 93971; 93976; 94668; 97802; 99285; A4216; J0295; J2405

== ENCOUNTER 2025-02-26 11:26 | Outpatient (REF) | payer SELFPAY ==
[2025-02-26 11:26] VITALS: BP 176/91; PULSE 97; RESP 14; TEMP 36.6; O2SAT 98; BMI 33.1
--- NOTE | 2025-02-26 11:41 | EX.ED.DYSGE1 ---
HPI <RAJAN Chen - Last Filed: 02/26/25 14:40> History of Present Illness Chief Complaint: Abn Labs Narrative Narrative: Patient resenting today from the nursing home due to concerns for abnormal lab values. He apparently had recent labs that showed an abnormal kidney function as well as being anemic and was sent in for evaluation. Patient has no acute complaints. He has a history of alcoholic liver cirrhosis. He did have jaundice to his skin and eyes that he reports is improving. He denies any fevers, chills, nausea, and vomiting. He denies any stool changes or blood in the stool. PFSH <RAJAN Chen - Last Filed: 02/26/25 14:40> [facility] Medical History Fracture of metacarpal of right hand, closed Alcoholic peripheral neuropathy Liver cirrhosis Home Medications ?Medication ?Instructions ?Recorded ?Last Taken ?Type NK 02/26/25 Unknown History Allergy/AdvReac Type Severity Reaction Status Date / Time No Known Allergies Allergy Verified 02/26/25 11:27 Surgical History Hx of appendectomy Social History Smoking Status: Never smoker ROS <RAJAN Chen - Last Filed: 02/26/25 14:40> ROS ED Constitutional Constitutional ED: Denies chills or fever(s) Cardiovascular Cardiovascular: Denies chest pain Respiratory/Chest Respiratory/Chest: Denies dyspnea Gastrointestinal Gastrointestinal: Denies abdominal pain, melena, nausea or vomiting Genitourinary Genitourinary ED: Denies dysuria, hematuria or urinary urgency Musculoskeletal Musculoskeletal: Denies arthralgias or myalgias Integumentary Denies rash Neurologic Neurologic: Denies weakness EXAM <RAJAN Chen - Last Filed: 02/26/25 14:40> Physical Exam Const Vital Signs: 02/26/25 11:26 02/26/25 11:35 02/26/25 13:26 Temperature 98 F Temperature Source Temporal Pulse Rate 97 70 Respiratory Rate 14 15 Respiratory Effort Normal Respiratory Pattern Normal Blood Pressure 176/91 H 143/96 H Blood Pressure Mean 119 111 Pulse Ox 98 98 Oxygen Delivery Method Room Air Room Air 02/26/25 14:10 02/26/25 14:40 Temperature 97.8 F Temperature Source Pulse Rate 69 78 Respiratory Rate 15 16 Respiratory Effort Respiratory Pattern Blood Pressure 145/93 H 163/99 H Blood Pressure Mean 110 120 Pulse Ox 100 99 Oxygen Delivery Method Room Air Positive well nourished, well developed and no apparent distress General Appearance ED: well developed HEENT Reports normocephalic and head/scalp atraumatic Mouth ED: Yes moist mucous membranes normal Eyes PERRL and EOMs intact bilaterally Neck full ROM and supple Chest Wall inspection of chest normal Resp normal respiratory effort and clear to auscultation bilaterally Cardio regular rate and regular rhythm GI soft to palpation, non-tender and no masses GI Narrative: Moderately distended abdomen, tender Back/Spine normal ROM and normal to inspection Extremity normal to inspection and full ROM Neuro oriented x3, CN's II-XII intact bilaterally, moves all extremities, no focal motor deficits and no sensory deficits noted Sensorium / Orientation: awake and alert Psych mental status grossly normal and thought process normal Skin no rashes or lesions noted and no wounds <Dr. Neftaly Gray MD - Last Filed: 02/26/25 15:55> Physical Exam Const Vital Signs: 02/26/25 11:26 02/26/25 11:35 02/26/25 13:26 Temperature 98 F Temperature Source Temporal Pulse Rate 97 70 Respiratory Rate 14 15 Respiratory Effort Normal Respiratory Pattern Normal Blood Pressure 176/91 H 143/96 H Blood Pressure Mean 119 111 Pulse Ox 98 98 Oxygen Delivery Method Room Air Room Air 02/26/25 14:10 02/26/25 14:40 Temperature 97.8 F Temperature Source Pulse Rate 69 78 Respiratory Rate 15 16 Respiratory Effort Respiratory Pattern Blood Pressure 145/93 H 163/99 H Blood Pressure Mean 110 120 Pulse Ox 100 99 Oxygen Delivery Method Room Air MDM <RAJAN Chen - Last Filed: 02/26/25 14:40> [facility] Narrative Medical decision making narrative: Patient presents today after being sent over from nursing home due to abnormal labs. He apparently appeared anemic and had an abnormal kidney function. He does not have any acute complaints. He is in no acute distress. He denies any history of GI bleed, he denies any black or tarry stools. He has a history of liver cirrhosis. No recent alcohol use. Repeat labs will be obtained. Labs reveal a hemoglobin of 9.4, this was 11.9 in December. His creatinine is 2.45 and his BUN is 29. His creatinine was elevated in December, however he was also septic at that time and had rhabdomyolysis. his kidney function did return to normal. We did speak with the hospitalist. They recommended adding on propranolol 20 mg twice daily for his blood pressure and giving him a liter of IV fluids here, having him discontinue his spironolactone that he is taking at the nursing home and have repeat labs obtained on Saturday. The attending did speak with lead application architect Dr. Trujillo who is agreeable with this plan. I will give him a nephrology referral if his kidney function continues to worsen. Patient discharged in stable condition. Lab Data Attestation: I reviewed the patient's lab results. Lab results narrative: Hemoglobin 9.4, this was 11.9 in December Labs: Laboratory Results - last 24 hr 02/26/25 11:45 WBC 6.4 RBC 2.87 L Hgb 9.4 L Hct 26.0 L MCV 90.6 MCH 32.8 H MCHC 36.2 H RDW Std Deviation 44.8 H RDW Coeff of Freddy 13.7 Plt Count 130 L MPV 9.8 Immature Gran % (Auto) 0.300 Neut % (Auto) 66.8 Lymph % (Auto) 21.2 [place] % (Auto) 9.6 Eos % (Auto) 1.6 Baso % (Auto) 0.5 Absolute Neuts (auto) 4.3 Absolute Lymphs (auto) 1.35 Nucleated RBC % 0 Sodium 135 Potassium 4.1 Chloride 105 Carbon Dioxide 19.4 L Anion Gap 10 BUN 29 H Creatinine 2.45 H Estim Creat Clear Calc 47.11 L Est GFR (MDRD) Non-Af 33 L BUN/Creatinine Ratio 11.7 Glucose 105 H Calcium 8.5 Total Bilirubin 1.95 H AST 55 H ALT 25 Alkaline Phosphatase 80 Total Protein 6.6 Albumin 2.3 L Globulin 4.3 H Albumin/Globulin Ratio 0.5 L <Dr. Neftaly Gray MD - Last Filed: 02/26/25 15:55> [facility] Lab Data Labs: Laboratory Results - last 24 hr 02/26/25 11:45 WBC 6.4 RBC 2.87 L Hgb 9.4 L Hct 26.0 L MCV 90.6 MCH 32.8 H MCHC 36.2 H RDW Std Deviation 44.8 H RDW Coeff of Freddy 13.7 Plt Count 130 L MPV 9.8 Immature Gran % (Auto) 0.300 Neut % (Auto) 66.8 Lymph % (Auto) 21.2 [place] % (Auto) 9.6 Eos % (Auto) 1.6 Baso % (Auto) 0.5 Absolute Neuts (auto) 4.3 Absolute Lymphs (auto) 1.35 Nucleated RBC % 0 Sodium 135 Potassium 4.1 Chloride 105 Carbon Dioxide 19.4 L Anion Gap 10 BUN 29 H Creatinine 2.45 H Estim Creat Clear Calc 47.11 L Est GFR (MDRD) Non-Af 33 L BUN/Creatinine Ratio 11.7 Glucose 105 H Calcium 8.5 Total Bilirubin 1.95 H AST 55 H ALT 25 Alkaline Phosphatase 80 Total Protein 6.6 Albumin 2.3 L Globulin 4.3 H Albumin/Globulin Ratio 0.5 L Treatment and Re-Evaluation Comments:: I have personally performed a face to face assessment of the patient and have reviewed the RAMILA Note. I performed a substantive portion of the visit including all aspects of the following. My santillan findings include: History is patient with jaundice for the past 1.5 years or so, longstanding history of heavy alcohol use although he curbed his use before going into nursing home and went through detox and now is sober. He has had edema in his legs that has been worsening. He has no other complaints. He has been urinating well. Abnormal labs at nursing home. Exam is protuberant abdomen with a positive fluid wave, none tenderness or rebound. Scleral icterus present. Edema in the legs. Well-appearing otherwise. Medical Decison Making labs reviewed, his creatinine is 2.45 whereas his last creatinine was about 0.8. This is the most concerning lab results. He probably does have cirrhosis, he has a history of hyperbilirubinemia, but his level is not as high as it has been in the past. Will discuss with medicine for recommendation to possible admission. We found out that the patient is on spironolactone 50 mg no other medications at nursing home. Medicine recommends discontinuing this, giving him a liter of fluid before discharge, have him follow-up with the practitioners at the nursing home, getting a BMP repeated the beginning of next week, restarting the spironolactone at 25 mg daily if creatinine improving. I discussed with Dr. Trujillo with nephrology. He agrees that if his creatinine continues to go up despite this he would be happy to have the patient follow-up as an outpatient. We did see that he had an ultrasound of the abdomen including the kidneys that was normal back when his creatinine had bumped up to about 1.5 but it went back down prior to going up now. Other additions or changes: [None] Discharge Plan Admission Attending Provider: Neftaly Gray Primary Care Provider: Care Physician,No Primary Instructions Patient Instructions: ED Cirrhosis, Acute Kidney Failure Dc Additional Instructions / Restrictions: Discontinue the spironolactone. Have a repeat BMP to assess your kidney function on Saturday, if the kidney function is worsening, you can follow-up with Dr. Trujillo. Begin taking propranolol 20 mg twice daily for your blood pressure. If your kidney function improves, you can resume taking 25 mg spironolactone daily. Continue wearing compression socks during the day for your leg swelling. Discharge Orders/Prescriptions Prescriptions: No Action NK Referrals / Follow Up: Thanh Trujillo MD [Med Staff - Consulting] - 3-5 Days if not improving Care Physician,No Primary [Primary Care Provider] - Disposition Disposition (needs filled in before D/C Order can be placed): Home, Self Care
[2025-02-26 11:51] LABS: Absolute Lymphocyte Count 1.35 X10^3/uL (0.83-4.51); Absolute Neutrophil Count 4.3 X10^3/uL (2.0-7.7); Basophil# 0.03 X10^3/uL; Basophil% 0.5 % (0-1); Eosinophils% 1.6 % (0-5); Hemoglobin 9.4 g/dL (13.0-16.5); Lymphocyte # 1.35 X10^3/ul (0.83-4.51); Lymphocyte % 21.2 % (19-41); Mean Corp Hgb Conc 36.2 g/dL (32-36); Mean Corpuscular Hgb 32.8 pg (27.0-32.0); Mean Corpuscular Volume 90.6 fL (80-94); Mean Platelet Vol. 9.8 fl (6.2-12.0); Monocyte# 0.61 X10^3/uL; Monocyte% 9.6 % (0-10); NRBC Flagged by Analyzer 0 % (0-5); Neutrophil # 4.26 X10^3/uL (2.7-7.7); Neutrophil % 66.8 % (47-70); Platelet Count 130 K/mm3 (150-450); RBC Distribution Width CV 13.7 % (11.6-14.6); RBC Distribution Width SD 44.8 fl (35.1-43.9); Red Blood Count 2.87 M/mm3 (4.6-6.2); White Blood Count 6.4 K/mm3 (4.4-11.0)
[2025-02-26 12:16] LABS: ALB/GLOB Ratio 0.5 RATIO (0.9-2.4); AST(SGOT) 55 U/L (<=37); Alanine Aminotransfer ALT/SGPT 25 U/L (<=46); Albumin, Serum 2.3 g/dL (3.5-5.0); Alkaline Phosphatase 80 U/L (40-129); Anion Gap 10 (5-15); BUN 29 mg/dL (4-19); BUN/Creat Ratio 11.7 RATIO (10-20); Calcium,Total 8.5 mg/dL (7.6-11.0); Carbon Dioxide 19.4 mmol/L (21.0-32.0); Chloride 105 mmol/L (98-108); Creatinine, Serum 2.45 mg/dL (0.70-1.20); EST Glomerular Filtration Rate 33 (>60); Estimated Creatinine Clearance 47.11 ml/min (50-250); Globulin 4.3 g/dL (2.2-4.2); Glucose 105 mg/dL (70-99); Potassium 4.1 mmol/L (3.3-5.1); Protein, Total 6.6 g/dL (5.9-8.4); Sodium Level 135 mmol/L (133-145); Total Bilirubin 1.95 mg/dL (0.00-1.30)
[2025-02-26 13:26] VITALS: BP 143/96; PULSE 70; RESP 15; O2SAT 98
[2025-02-26] MEDS: 0.9% Normal Saline (1000mL) 1,000 ML 999 ML IV (13:47)
[2025-02-26 14:10] VITALS: BP 145/93; PULSE 69; RESP 15; O2SAT 100
[2025-02-26] MEDS: Propranolol 10 MG Tablet 20 MG PO (14:11)
[2025-02-26 14:40] VITALS: BP 163/99; PULSE 78; RESP 16; TEMP 36.6; O2SAT 99
== END 2025-02-26 14:41 | disposition home or self-care (01) ==
LOC: ED 11:26
PROVIDERS: Physician Assistant; Visit Provider Emergency Medicine
DX: R60.0 Localized edema (principal); R79.9 Abnormal finding of blood chemistry, unspecified; K74.60 Unspecified cirrhosis of liver; Y92.149 Unspecified place in prison as the place of occurrence of the external cause
CPT/HCPCS: 80053; 85025; A4216